=== PATIENT | male | born 1945 | race Caucasian/White ===

== ENCOUNTER 2016-10-17 13:40 | Observation (INO) | payer MEDICARE, OTHER ==
[~2016-10-17] VITALS: Ht 190.5 cm; Wt 137.7 kg
[2016-10-17] VITALS (11 sets, daily range): BP systolic 128–158; BP diastolic 71–87; PULSE 66–85; RESP 15–16; TEMP 98.1; O2SAT 95–98
[~2016-10-17 13:40] MED LIST: AUGM875 PO; BACT2OIN TOP; CARD120T4 PO; DIGO.125 PO; DOXY100T PO; KLOR20TA6 PO; LEVA750T9 PO; METO25 PO; RANI150 PO; VIBR50SY PO
[2016-10-17] MEDS ORDERED: SODIUM CHLOR 0.9% 1000 ML INJ 1,000 ML IV ONE ×2 (14:57→16:30)
[2016-10-17] MEDS ORDERED: SODIUM CHLORIDE 0.9% FLUSH 10 ML FLUSH IVF PRN (15:00)
[2016-10-17] MEDS ORDERED: MORPHINE SULFATE 4 MG/ML INJ IV PUSH ONE (15:00)
[2016-10-17] MEDS ORDERED: EYECAP PO (15:19)
[2016-10-17] MEDS ORDERED: EXCETAB66 PO (15:19)
[2016-10-17] MEDS ORDERED: VITA200013 PO (15:19)
[2016-10-17] MEDS ORDERED: ASPI1TAB69 PO (15:19)
[2016-10-17] MEDS ORDERED: METO25TA3 PO (15:19)
[2016-10-17] MEDS ORDERED: DILT-64 PO (15:19)
[2016-10-17 15:21] LABS: AUTOMATED NEUTROPHIL # 8.3 TH/MM3 (1.8-7.7); BASOPHIL # 0.1 TH/MM3 (0-0.2); BASOPHIL % 0.6 % (0.0-2.0); EOSINOPHIL # 0.2 TH/MM3 (0-0.4); EOSINOPHIL % 1.7 % (0.0-4.0); HEMATOCRIT 43.5 % (39.0-51.0); LYMPH % 16.6 % (9.0-44.0); LYMPHOCYTE # 1.9 TH/MM3 (1.0-4.8); MEAN CELL VOLUME 93.7 FL (80.0-100.0); MEAN CORPUSCULAR HEMOGLOBIN 31.2 PG (27.0-34.0); MEAN CORPUSCULAR HGB CONC 33.3 % (32.0-36.0); MONO % 8.6 % (0.0-8.0); NEUT % 72.5 % (16.0-70.0); PLATELET COUNT 193 TH/MM3 (150-450); RED BLOOD COUNT 4.65 MIL/MM3 (4.50-5.90); RED CELL DISTRIBUTION WIDTH 13.6 % (11.6-17.2); WHITE BLOOD COUNT 11.5 TH/MM3 (4.0-11.0)
[2016-10-17 15:31] LABS: CHLORIDE 101 MEQ/L (98-107); HEMO FLAGS DIFF FINAL; POTASSIUM 3.8 MEQ/L (3.5-5.1); SODIUM (NA) 138 MEQ/L (136-145)
[2016-10-17 15:34] LABS: ANION GAP 9 MEQ/L (5-15); BICARBONATE 27.7 MEQ/L (21.0-32.0)
[2016-10-17 15:35] LABS: BLOOD UREA NITROGEN 20 MG/DL (7-18); MAGNESIUM 1.8 MG/DL (1.5-2.5)
[2016-10-17 15:37] LABS: ALT (GPT) 24 U/L (12-78); AST (GOT) 19 U/L (15-37)
[2016-10-17 15:38] LABS: GLOMERULAR FILTRATION RATE 43 ML/MIN (>89)
[2016-10-17 15:39] LABS: TOTAL BILIRUBIN ADULT 0.5 MG/DL (0.2-1.0)
[2016-10-17 15:40] LABS: ALKALINE PHOSPHATASE 102 U/L (45-117); CREATINE KINASE 101 U/L (39-308)
[2016-10-17 15:53] LABS: CKMB 3.1 NG/ML (0.5-3.6)
--- NOTE | 2016-10-17 15:56 | RADHPO ---
EXAM DATE/TIME: 10/17/2016 15:10 [facility] COMPARISON: No previous studies available for comparison. INDICATIONS : Chest and back pain after fall this morning MEDICAL HISTORY : None. SURGICAL HISTORY : None. ENCOUNTER: Initial ACUITY: 1 day PAIN SCORE: 5/10 LOCATION: Bilateral chest FINDINGS: The cardiac silhouette is enlarged in transverse diameter. The lungs are free of acute parenchymal op acity. No effusions are identified. Osseous structures are intact. CONCLUSION: Cardiomegaly. No acute cardiopulmonary disease. Titi Sarmiento MD on October 17, 2016 at 15:33 Board Certified Radiologist. This report was verified electronically.
[2016-10-17 16:08] LABS: APTT (PATIENT) 26.1 SEC (24.3-30.1); PROTHROMBIN TIME - PATIENT 10.7 SEC (9.8-11.6)
[2016-10-17] MEDS ORDERED: IOHEXOL 350 MG/ML 10 ML VIAL (for RAD DIAG) IV ONE (16:40)
--- NOTE | 2016-10-17 16:45 | RADHPO ---
EXAM DATE/TIME: 10/17/2016 16:19 [facility] COMPARISON: No previous studies available for comparison. INDICATIONS : Syncopal episode with back pain. RADIATION DOSE: 71.96 CTDIvol (mGy) MEDICAL HISTORY : Hypertension. Cardiovascular disease SURGICAL HISTORY : None. ENCOUNTER: Initial ACUITY: 1 day PAIN SCALE: 5/10 LOCATION: cranial TECHNIQUE: Multiple contiguous axial images were obtained of the head. Using automated exposure control and adj ustment of the mA and/or kV according to patient size, radiation dose was kept as low as reasonably a chievable to obtain optimal diagnostic quality images. FINDINGS: CEREBRUM: The ventricles are normal for age. There appears to be a small, subcentimeter intraventricular lipom a in the left lateral ventricle. No evidence of midline shift, mass lesion, hemorrhage or acute infar ction. No extra-axial fluid collections are seen. POSTERIOR FOSSA: The cerebellum and brainstem are intact. The 4th ventricle is midline. The cerebellopontine angle i s unremarkable. EXTRACRANIAL: The visualized portion of the orbits is intact. SKULL: The calvaria is intact. No evidence of skull fracture. CONCLUSION: 1. Possible small, subcentimeter left-sided intraventricular lipoma. 2. Otherwise negative. Kentrell Chan MD on October 17, 2016 at 16:42 Board Certified Radiologist. This report was verified electronically.
--- NOTE | 2016-10-17 16:50 | PD ---
HPI Chief Complaint: Syncope/Near-Syncope Time Seen by Provider: 14:41 Travel History International Travel<30 days: No Contact w/Intl Traveler<30days: No Traveled to known affect area: No History of Present Illness HPI 71 y/o male presents with syncopal episode today after he went to the bathroom to urinate. He states that he felt lightheaded and blacked out but came to right before he hit the ground. He states he hit his head and started having pain to his left side of his back after the fall. He states intermittently he' s had tingling to his fingertips. Quality of pain is sharp. Severity is moderate. Pain is worse with movement. Follow was from standing position. He states this is his third syncopal event in the past month and this is the first one that he came to the ER to get evaluated for. He states Dr. baeza is his jewel inserter for atrial fibrillation. dr azul is his primary care physician. He states that he's never had issues with heart stents that he is aware of. He denies other concurrent complaints at this time. He does take a baby aspirin in terms of blood thinner medication. PFSH Past Medical History Arthritis: Yes Asthma: No Autoimmune Disease: No Blood Disorders: No Heart Rhythm Problems: Yes (AFIB) Cancer: No Cardiovascular Problems: Yes (ATRIAL FIBRILATION, thoracic AORTIC ANEURYSM) High Cholesterol: Yes Chest Pain: No Congestive Heart Failure: No COPD: No Cerebrovascular Accident: No Diabetes: No Diminished Hearing: No Endocrine: No Gastrointestinal Disorders: Yes GERD: No Glaucoma: No Genitourinary: No Headaches: Yes Hepatitis: No Hiatal Hernia: No Hypertension: Yes Immune Disorder: No Medical other: Yes (macular degeneration) Musculoskeletal: Yes (CHRONIC JOINT PAIN) Neurologic: Yes (neuropathy) Psychiatric: No Reproductive: No Respiratory: Yes Immunizations Current: Yes Migraines: Yes Myocardial Infarction: No Seizures: No Sickle Cell Disease: No Sleep Apnea: No Thyroid Disease: No Ulcer: Yes (BLEEDIND UL;CER IN PAST) Past Surgical History Abdominal Surgery: No AICD: No Appendectomy: No Arteriovenous Shunt: No Cardiac Surgery: Yes (CARDIAC CATH IN PAST ATTEMPTED ABLATION) Cholecystectomy: No Ear Surgery: No Endocrine Surgery: No Eye Surgery: No Genitourinary Surgery: No Gynecologic Surgery: No Insulin Pump: No Joint Replacement: No Oral Surgery: No Thoracic Surgery: No Other Surgery: Yes (CA? REMOVED FROM BELOW RIGHT EYE) Social History Alcohol Use: Yes (3 mix drinks and 3 beers 5 x weekly, states does not drink 2 days/week) Tobacco Use: Yes (1-2 PPD) Substance Use: No Allergies-Medications (Allergen,Severity, Reaction): Coded Allergies: No Known Allergies (Verified , 10/17/16) Reported Meds & Prescriptions Reported Meds & Active Scripts Active Reported Excedrin Back & Body (Acetaminophen-Aspirin Buffered) 250-250 mg Tab 2 Tab PO Q3HR NEB PRN Vitamin D (Cholecalciferol) 2,000 Unit Cap 2,000 Units PO DAILY Eye Vitamins (Multiple Vitamins W/ Minerals) 1 Cap 1 Cap PO DAILY Diltiazem CD 24 HR 240 Mg Caper 240 Mg PO DAILY Metoprolol Tartrate 25 Mg Tab 25 Mg PO BID Aspirin 81 Mg Tabdr 81 Mg PO DAILY Review of Systems Except as stated in HPI: all other systems reviewed are Neg Physical Exam Narrative General: 71 y/o patient in no apparent distress Skin: warm and dry Eyes: pupils equal NECK:c-collar placed Cardiovascular: Regular rate and rhythm Respiratory: normal respiratory effort noted, clear to auscultation bilaterally Abdomen: soft, nontender, nondistended Back: No step-offs, midline spine nontender with palpation Extremities: no pain over main joints, no lacerations over, neurovascularly intact Neuro: awake, alert, sensation and motor grossly intact Data Data Last Documented VS Vital Signs Date Time Temp Pulse Resp B/P Pulse Ox O2 Delivery O2 Flow Rate FiO2 10/17/16 17:51 66 16 140/80 97 Room Air 10/17/16 13:58 98.1 Orders Electrocardiogram (10/17/16 14:57) Complete Blood Count With Diff (10/17/16 14:57) Comprehensive Metabolic Panel (10/17/16 14:57) Magnesium (Mg) (10/17/16 14:57) B-Type Natriuretic Peptide (10/17/16 14:57) Ckmb (Isoenzyme) Profile (10/17/16 14:57) Troponin I (10/17/16 14:57) Act Partial Throm Time (Ptt) (10/17/16 14:57) Prothrombin Time / Inr (Pt) (10/17/16 14:57) Urinalysis - C+S If Indicated (10/17/16 14:57) Chest, Single Ap (10/17/16 14:57) Ct Brain W/O Iv Contrast(Rout) (10/17/16 14:57) Ecg Monitoring (10/17/16 14:57) Iv Access Insert/Monitor (10/17/16 14:57) Oximetry (10/17/16 14:57) Sodium Chloride 0.9% Flush (Ns Flush) (10/17/16 15:00) Sodium Chlor 0.9% 1000 Ml Inj (Ns 1000 M (10/17/16 14:57) Ct Cerv Spine W/O Contrast (10/17/16 ) Apply Cervical Collar (10/17/16 14:57) Morphine Inj (Morphine Inj) (10/17/16 15:00) CKMB (10/17/16 15:10) CKMB% (10/17/16 15:10) Cta Thor Abd Aorta W Iv C W3d (10/17/16 15:34) Sodium Chlor 0.9% 1000 Ml Inj (Ns 1000 M (10/17/16 16:30) Iohexol 350 Inj (Omnipaque 350 Inj) (10/17/16 16:40) Admit Order (Ed Use Only) (10/17/16 17:51) Labs Laboratory Tests Test 10/17/16 10/17/16 15:10 17:05 White Blood Count 11.5 TH/MM3 Red Blood Count 4.65 MIL/MM3 Hemoglobin 14.5 GM/DL Hematocrit 43.5 % Mean Corpuscular Volume 93.7 FL Mean Corpuscular Hemoglobin 31.2 PG Mean Corpuscular Hemoglobin 33.3 % Concent Red Cell Distribution Width 13.6 % Platelet Count 193 TH/MM3 Mean Platelet Volume 8.8 FL Neutrophils (%) (Auto) 72.5 % Lymphocytes (%) (Auto) 16.6 % Monocytes (%) (Auto) 8.6 % Eosinophils (%) (Auto) 1.7 % Basophils (%) (Auto) 0.6 % Neutrophils # (Auto) 8.3 TH/MM3 Lymphocytes # (Auto) 1.9 TH/MM3 Monocytes # (Auto) 1.0 TH/MM3 Eosinophils # (Auto) 0.2 TH/MM3 Basophils # (Auto) 0.1 TH/MM3 CBC Comment DIFF FINAL Differential Comment Prothrombin Time 10.7 SEC Prothromb Time International 1.0 RATIO Ratio Activated Partial 26.1 SEC Thromboplast Time Sodium Level 138 MEQ/L Potassium Level 3.8 MEQ/L Chloride Level 101 MEQ/L Carbon Dioxide Level 27.7 MEQ/L Anion Gap 9 MEQ/L Blood Urea Nitrogen 20 MG/DL Creatinine 1.60 MG/DL Estimat Glomerular Filtration 43 ML/MIN Rate Random Glucose 115 MG/DL Calcium Level 9.0 MG/DL Magnesium Level 1.8 MG/DL Total Bilirubin 0.5 MG/DL Aspartate Amino Transf 19 U/L (AST/SGOT) Alanine Aminotransferase 24 U/L (ALT/SGPT) Alkaline Phosphatase 102 U/L Total Creatine Kinase 101 U/L Creatine Kinase MB 3.1 NG/ML Troponin I LESS THAN 0.02 NG/ML B-Type Natriuretic Peptide 39 PG/ML Total Protein 7.0 GM/DL Albumin 3.5 GM/DL Urine Color YELLOW Urine Turbidity CLEAR Urine pH 5.5 Urine Specific [place] 1.015 Urine Protein NEG mg/dL Urine Glucose (UA) NEG mg/dL Urine Ketones NEG mg/dL Urine Occult Blood NEG Urine Nitrite NEG Urine Bilirubin NEG Urine Leukocyte Esterase NEG Urine WBC 0-2 /hpf Urine Squamous Epithelial 0-5 /hpf Cells Urine Hyaline Casts 3-5 /lpf Urine Mucus FEW /lpf Microscopic Urinalysis Comment CULT NOT INDICATED MDM Medical Decision Making Medical Screen Exam Complete: Yes Emergency Medical Condition: Yes Medical Record Reviewed: Yes (past history confirmed) Interpretation(s) EKG shows atrial fibrillation, no ST elevation or depression, and no arrhythmias. No significant T-wave inversions. CBC & BMP Diagram 10/17/16 15:10 Last [address] 10/17/16 [id number] Signed Impressions: Service Date/Time: Monday, October 17, 2016 16:19 - CONCLUSION: 1. Possible small, subcentimeter left-sided intraventricular lipoma. 2. Otherwise negative. Kentrell Chan MD Chest X-Ray 10/17/16 [id number] Signed Impressions: Service Date/Time: Monday, October 17, 2016 15:10 - CONCLUSION: Cardiomegaly. No acute cardiopulmonary disease. Titi Sarmiento MD CT chest discussed with radiologist and given history and states no dissection, aneurysm or PE CT cervical spine with multiple changes noted and patient notes that he has had multiple issues with his neck before-advised MRI as outpatient given no acute neurologic findings now, if numbness returns he may need MRI here Differential Diagnosis Anemia, vasovagal, cardiac, enlargement of aneurysm with leak, aortic dissection , fracture.... Narrative Course Will check blood work, CT scan and dose with IV fluids and monitor patient without any midline pain, no numbness now, c collar removed, patient updated and agrees to observation for further monitoring Physician Communication Physician Communication dr hayden agrees to observation Diagnosis Primary Impression: Syncope Qualified Code: R55 - Syncope, unspecified syncope type Admitting Information Admitting Physician Requests: Observation Danya Pelletier MD Oct 17, 2016 16:50
[2016-10-17 17:15] LABS: BLOOD, URINE NEG (NEG); GLUCOSE,URINE NEG (NEG); KETONE, URINE NEG (NEG); NITRITE,URINE NEG (NEG); PH, URINE 5.5 (5.0-8.5)
[2016-10-17 17:20] LABS: URINE COLOR YELLOW (YELLW/STRAW)
[2016-10-17 17:23] LABS: COMMENT (UR) CULT NOT INDICATED; CULTURE IF INDICATED CULT NOT INDICATED; MUCUS URINE FEW /lpf (OCC); SQUAMOUS EPITHELIAL CELL URINE 0-5 /hpf (0-5); WBC, URINE 0-2 /hpf (0-5)
--- NOTE | 2016-10-17 17:25 | RADHPO ---
EXAM DATE/TIME: 10/17/2016 16:28 [facility] COMPARISON: No previous studies available for comparison. INDICATIONS : Syncopal episode with back pain. IV CONTRAST: 100 cc Omnipaque 350 (iohexol) IV RADIATION DOSE: 18.85 CTDIvol (mGy) MEDICAL HISTORY : Hypertension. Aneurysm, abdominal. SURGICAL HISTORY : None. ENCOUNTER: Initial ACUITY: 1 day PAIN SCALE: 10/10 LOCATION: Chest and back. TECHNIQUE: Volumetric scanning was performed using a multi-row detector CT scanner. The data was post processed with a variety of visualization algorithms including full volume maximum intensity pr ojection, multi-planar sliding thin slab reformation, curved planar reformation, and surface renderin g techniques. Using automated exposure control and adjustment of the mA and/or kV according to patie nt size, radiation dose was kept as low as reasonably achievable to obtain optimal diagnostic quality images. FINDINGS: Moderate atherosclerotic vascular disease is present with coronary artery calcification. There is mi ld dilatation of the ascending aorta when compared to the descending aorta. There is no evidence for a thoracic dissection. There is compensated cardiomegaly without pericardial effusion. The abdominal aorta is unremarkable. Scattered vascular calcifications are noted. Both iliacs are widely patent. There are no suspicious lung lesions identified. There is no axillary or mediastinal adenopathy. Liver is free of focal defects. Spleen and pancreas are unremarkable. The right adrenal gland is normal. There is a small 2.3 cm left adrenal nodule. There is a nonobstructing 8 mm stone in the right kidney associated with a small right renal cyst. There is no evidence for pancreatitis. Review of bone windows reveals degenerative changes in the thoracic spine. There are degenerative ch anges in the lumbar spine as well. There is no vertebral compression. There is no retroperitoneal h ematoma. CONCLUSION: 1. There is no evidence for aortic dissection. 2. 2.3 cm left adrenal nodule. 3. Nonobstructing right renal stone. 4. There is no pericardial effusion. 5. There is mild compensated cardiomegaly. 6. There are no significant coronary artery calcifications. 7. There is no evidence for central pulmonary emboli on limited views of the pulmonary arteries. Rubén Mariee MD FACR on October 17, 2016 at 17:12 Board Certified Radiologist. This report was verified electronically.
--- NOTE | 2016-10-17 17:36 | RADHPO ---
EXAM DATE/TIME: 10/17/2016 16:19 [facility] COMPARISON: No previous studies available for comparison. INDICATIONS : Syncopal episode, fall. RADIATION DOSE: 32.11 CTDIvol (mGy) MEDICAL HISTORY : Cardiovascular disease. Hypertension. SURGICAL HISTORY : None. ENCOUNTER: Initial ACUITY: 1 day PAIN SCALE: 5/10 LOCATION: Neck TECHNIQUE: Volumetric scanning of the cervical spine was performed. Multiplanar reconstructions i n the sagittal, coronal and oblique axial planes were performed. Using automated exposure control a nd adjustment of the mA and/or kV according to patient size, radiation dose was kept as low as reason ably achievable to obtain optimal diagnostic quality images. FINDINGS: Sagittal and coronal reconstructions show multilevel degenerative disc disease with bridging anterior osteophytes from C4-C5 inferiorly characteristic of DISH. Minimal grade I anterolisthesis of C3 on C4 and C4 on C5 is almost certainly due to marked facet degeneration. Vertebral body heights are zabrina ntained without evidence of fracture. There is some reversal of the normal lordotic curvature. Unco vertebral ridging is most prominent posteriorly at C5-C6 and left posterolaterally at C2-C3 and C3-C4 . This encroaches on the anterior epidural space but none of these results in significant spinal reji nosis. Detailed axial images as follows: C2-C3: Bilateral facet hypertrophy left greater than right. There is some encroachment on both neur al foramina and again, left posterior spur encroaches on the anterior epidural space but I believe th e spinal canal and neural foramina remain adequate. C3-C4: Bilateral facet hypertrophy. There is narrowing of both neural foramina, right greater than left. This could compromise the right C4 nerve root. Left posterior spur again encroaches on the an terior epidural space but the spinal canal and left neural foramen I believe are adequate. C4-C5: Bilateral facet hypertrophy, right greater than left. Prominent anterior spurs with bridging osteophytes. Some encroachment on the neural foramina but the spinal canal and neural foramina I be lieve are adequate. C5-C6: Uncovertebral ridging. Spinal canal and neural foramina are adequate. C6-C7: Uncovertebral ridging predominantly directed anteriorly. Spinal canal and neural foramina ar e patent. C7-T1: Prominent anterior spur. Spinal canal and neural foramina are patent. CONCLUSION: 1. Reversal of the normal lordotic curvature with flowing anterior osteophytes from C4-C5 inferiorly characteristic of DISH. 2. Grade I anterolisthesis of C3 on C4 and C4 on C5 which is almost certainly due to marked facet hy pertrophy at both of these levels. I do not see an acute fracture. 3. There is encroachment on the neural foramina at multiple levels. This is most severe rightward a t C3-C4 where there may be some compromise of the exiting right C4 nerve root. I believe the spinal canal and neural foramina are adequate at all remaining levels. Kentrell Chan MD on October 17, 2016 at 17:17 Board Certified Radiologist. This report was verified electronically.
[2016-10-17] MEDS: SODIUM CHLOR 0.9% 1000 ML INJ 1,000 ML IV SCH (18:24)
[2016-10-17] MEDS ORDERED: ACETAMINOPHEN 325 MG TAB PO PRN (19:30)
[2016-10-18] VITALS (12 sets, daily range): BP systolic 118–157; BP diastolic 75–88; PULSE 76–130; RESP 14–20; TEMP 97.7–98.6; O2SAT 93–98
[2016-10-18] MEDS ORDERED: NALOXONE HCL 0.4 MG/ML AMP IV PRN (03:00)
[2016-10-18] MEDS ORDERED: MORPHINE SULFATE 4 MG/ML INJ IV PUSH ONE (03:00)
[2016-10-18] MEDS: ACETAMINOPHEN/HYDROcodone 325 MG/7.5 MG TAB PO PRN ×4 (06:35→23:42)
[2016-10-18 06:59] LABS: AUTOMATED NEUTROPHIL # 6.5 TH/MM3 (1.8-7.7); BASOPHIL % 0.3 % (0.0-2.0); EOSINOPHIL # 0.3 TH/MM3 (0-0.4); EOSINOPHIL % 3.3 % (0.0-4.0); HEMATOCRIT 39.8 % (39.0-51.0); HEMO FLAGS DIFF FINAL; LYMPH % 22.2 % (9.0-44.0); LYMPHOCYTE # 2.3 TH/MM3 (1.0-4.8); MEAN CELL VOLUME 94.2 FL (80.0-100.0); MEAN CORPUSCULAR HEMOGLOBIN 31.8 PG (27.0-34.0); MEAN CORPUSCULAR HGB CONC 33.7 % (32.0-36.0); MONO % 9.4 % (0.0-8.0); NEUT % 64.8 % (16.0-70.0); PLATELET COUNT 170 TH/MM3 (150-450); RED BLOOD COUNT 4.23 MIL/MM3 (4.50-5.90); RED CELL DISTRIBUTION WIDTH 14.1 % (11.6-17.2); WHITE BLOOD COUNT 10.1 TH/MM3 (4.0-11.0)
[2016-10-18 07:06] LABS: POTASSIUM 3.5 MEQ/L (3.5-5.1)
[2016-10-18 07:11] LABS: BICARBONATE 29.2 MEQ/L (21.0-32.0)
--- NOTE | 2016-10-18 13:38 | EKG ---
Date Performed: 10/17/2016 Time Performed: 14:42:16 PTAGE: 71 years EKG: Atrial fibrillation Rightward axis Abnormal ECG PREVIOUS TRACING : 03/09/2010 15.43 Compared to prior tracing no significant change DOCTOR: Titi Chao Interpretating Date/Time 10/18/2016 13:35:53
--- NOTE | 2016-10-18 14:09 | HHI.HP ---
[facility] Service [place] [facility] Primary Care Physician Jeannette Hartley MD Admission Diagnosis syncope Diagnoses: (1) Syncope Diagnosis: Principal Chief Complaint: Near syncopal episode Travel History International Travel<30 Days: No Contact w/Intl Traveler <30 Da: No Traveled to Known Affected Are: No History of Present Illness Mr. Love is a 71-year-old male with a known history of atrial fibrillation with previous ablation, macular degeneration, arthritis and chronic joint pain who presents to the ED after falling and hitting his head at home. Patient supposedly had gotten up out of bed around 0530 to use the restroom. He had just finished urinating while standing, went to go wash his hands, immediately felt dizzy and fell to the ground, hitting his head on the vanity. Per patient report he has had five similar episodes in the past few weeks which were all precipitated by his "coughing spells". After these coughing episodes he feels like he "looses all his strength and control in his lower extremities" and falls to the floor, without any loss of consciousness. This "loss of control" and "loss of feeling" is for a few short minutes and then slowly returns. Patient is being seen by Dr. Marin for atrial fibrillation and does continue to take Metoprolol and Diltazem. Denies any vision loss or vertigo. Denies any associated nausea, vomiting or loss of bladder or bowel control. Denies any chest pain, fever or shortness of breath. Review of Systems Constitutional: COMPLAINS OF: Dizziness, DENIES: Diaphoretic episodes, Fatigue , Fever, Weight gain, Weight loss, Chills, Change in appetite, Night Sweats Endocrine: DENIES: Heat/cold intolerance, Polydipsia, Polyuria, Polyphagia Eyes: DENIES: Blurred vision, Diplopia, Eye inflammation, Eye pain, Vision loss , Photosensitivity, Double Vision Ears, nose, mouth, throat: DENIES: Tinnitus, Hearing loss, Vertigo, Nasal discharge, Oral lesions, Throat pain, Hoarseness, Ear Pain, Running Nose, Epistaxis, Sinus Pain, Toothache, Odynophagia Respiratory: COMPLAINS OF: Cough (nonrpoductive), DENIES: Apneas, Snoring, Wheezing, Hemoptysis, Sputum production, Shortness of breath Cardiovascular: COMPLAINS OF: Syncope, DENIES: Chest pain, Palpitations, Dyspnea on Exertion, PND, Lower Extremity Edema, Orthopnea, Claudication Gastrointestinal: DENIES: Abdominal pain, Black stools, Bloody stools, Constipation, Diarrhea, Nausea, Vomiting, Difficulty Swallowing, Anorexia Genitourinary: DENIES: Sexual dysfunction, Urinary frequency, Urinary incontinence, Urgency, Hematuria, Dysuria, Nocturia, Penile Discharge, Testicular Pain, Testicular Swelling Musculoskeletal: COMPLAINS OF: Neck pain, DENIES: Joint pain, Muscle aches, Stiffness, Joint Swelling, Back pain Integumentary: DENIES: Abnormal pigmentation, Nail changes, Pruritus, Rash Hematologic/lymphatic: DENIES: Bruising, Lymphadenopathy Immunologic/allergic: DENIES: Eczema, Urticaria Neurologic: COMPLAINS OF: Poor Balance, DENIES: Abnormal gait, Headache, Localized weakness, Paresthesias, Seizures, Speech Problems, Tremor Psychiatric: DENIES: Anxiety, Confusion, Mood changes, Depression, Hallucinations, Agitation, Suicidal Ideation, Homicidal Ideation, Delusions Past Family Social History Past Medical History Atrial fibrillation Arthritis Thoracic aortic aneurism Hypercholesteremia Macular Degeneration Chronic joint pain Past Surgical History Cardiac ablation Reported Medications Reported Meds & Active Scripts Active Reported Excedrin Back & Body (Acetaminophen-Aspirin Buffered) 250-250 mg Tab 2 Tab PO Q3HR NEB PRN Vitamin D (Cholecalciferol) 2,000 Unit Cap 2,000 Units PO DAILY Eye Vitamins (Multiple Vitamins W/ Minerals) 1 Cap 1 Cap PO DAILY Diltiazem CD 24 HR 240 Mg Caper 240 Mg PO DAILY Metoprolol Tartrate 25 Mg Tab 25 Mg PO BID Aspirin 81 Mg Tabdr 81 Mg PO DAILY Allergies: Coded Allergies: No Known Allergies (Verified , 10/17/16) Family History Mothers health history is significant for liver cancer. Fathers medical history includes uncontrolled diabetes and PVD. Social History Patient lives at home with his . Patient does admit to a current smoking habit with a 55 pack year history. Does also admit to drinking 3 mixed drinks and 3 beers on 5 days of the week. Denies any current illicit drug abuse. Physical Exam Vital Signs Vital Signs Date Time Temp Pulse Resp B/P Pulse Ox O2 Delivery O2 Flow Rate FiO2 10/18/16 08:00 97.7 80 18 142/86 98 10/18/16 04:00 97.9 77 20 140/75 95 10/18/16 01:50 80 10/18/16 01:45 98.0 81 20 151/76 96 10/18/16 00:50 76 16 151/88 97 Room Air 10/17/16 23:50 78 16 137/78 98 Room Air 10/17/16 23:00 68 16 96 Room Air 10/17/16 22:50 78 16 137/73 96 Room Air 10/17/16 21:50 74 16 154/87 96 Room Air 10/17/16 20:50 66 16 136/84 95 Room Air 10/17/16 19:50 72 16 133/79 97 Room Air 10/17/16 19:00 74 16 96 Room Air 10/17/16 18:50 72 16 145/71 96 Room Air 10/17/16 18:45 16 97 Room Air 10/17/16 17:51 66 16 140/80 97 Room Air 10/17/16 16:53 78 16 143/84 96 Room Air 10/17/16 15:47 16 10/17/16 15:10 16 95 Room Air 10/17/16 15:10 67 16 95 Room Air 10/17/16 14:50 85 16 158/77 97 Room Air 10/17/16 13:58 98.1 72 15 128/71 97 Physical Exam GENERAL: This is a well-nourished, well-developed patient, in no apparent distress. Lying comfortably in bed. SKIN: No rashes, ecchymoses or lesions. Cool and dry. Bilateral lower extremities brown in color. HEAD: Atraumatic. Normocephalic. No temporal or scalp tenderness. EYES: Pupils equal round and reactive. Extraocular motions intact. No scleral icterus. No injection or drainage. No nystagmus noted. ENT: Nose without bleeding, purulent drainage or septal hematoma. Throat without erythema, tonsillar hypertrophy or exudate. Uvula midline. Airway patent. NECK: Trachea midline. No JVD or lymphadenopathy. Supple, nontender, no meningeal signs. CARDIOVASCULAR: Regular rate and rhythm without murmurs, gallops, or rubs. Bilateral DP and pedal pulses present 2+. RESPIRATORY: Clear to auscultation. Breath sounds equal bilaterally. No wheezes , rales, or rhonchi. GASTROINTESTINAL: Abdomen soft, non-tender, rounded. + BS x 4Q. No hepato- splenomegaly, or palpable masses. No guarding. MUSCULOSKELETAL: Extremities without clubbing, cyanosis, or edema. No joint tenderness, effusion, or edema noted. No calf tenderness. Negative Homans sign bilaterally. NEUROLOGICAL: Awake and alert. Cranial nerves II through XII intact. Motor and sensory grossly within normal limits. Five out of 5 muscle strength in all muscle groups. Normal speech. Laboratory Laboratory Tests Test 10/17/16 10/17/16 10/18/16 15:10 17:05 05:37 White Blood Count 11.5 10.1 Red Blood Count 4.65 4.23 Hemoglobin 14.5 13.4 Hematocrit 43.5 39.8 Mean Corpuscular Volume 93.7 94.2 Mean Corpuscular Hemoglobin 31.2 31.8 Mean Corpuscular Hemoglobin 33.3 33.7 Concent Red Cell Distribution Width 13.6 14.1 Platelet Count 193 170 Mean Platelet Volume 8.8 8.8 Neutrophils (%) (Auto) 72.5 64.8 Lymphocytes (%) (Auto) 16.6 22.2 Monocytes (%) (Auto) 8.6 9.4 Eosinophils (%) (Auto) 1.7 3.3 Basophils (%) (Auto) 0.6 0.3 Neutrophils # (Auto) 8.3 6.5 Lymphocytes # (Auto) 1.9 2.3 Monocytes # (Auto) 1.0 1.0 Eosinophils # (Auto) 0.2 0.3 Basophils # (Auto) 0.1 0.0 CBC Comment DIFF FINAL DIFF FINAL Differential Comment Prothrombin Time 10.7 Prothromb Time International 1.0 Ratio Activated Partial 26.1 Thromboplast Time Sodium Level 138 141 Potassium Level 3.8 3.5 Chloride Level 101 104 Carbon Dioxide Level 27.7 29.2 Anion Gap 9 8 Blood Urea Nitrogen 20 19 Creatinine 1.60 1.20 Estimat Glomerular Filtration 43 59 Rate Random Glucose 115 109 Calcium Level 9.0 8.5 Magnesium Level 1.8 Total Bilirubin 0.5 Aspartate Amino Transf 19 (AST/SGOT) Alanine Aminotransferase 24 (ALT/SGPT) Alkaline Phosphatase 102 Total Creatine Kinase 101 Creatine Kinase MB 3.1 Troponin I LESS THAN 0.02 B-Type Natriuretic Peptide 39 Total Protein 7.0 Albumin 3.5 Urine Color YELLOW Urine Turbidity CLEAR Urine pH 5.5 Urine Specific [place] 1.015 Urine Protein NEG Urine Glucose (UA) NEG Urine Ketones NEG Urine Occult Blood NEG Urine Nitrite NEG Urine Bilirubin NEG Urine Leukocyte Esterase NEG Urine WBC 0-2 Urine Squamous Epithelial 0-5 Cells Urine Hyaline Casts 3-5 Urine Mucus FEW Microscopic Urinalysis Comment CULT NOT INDICATED Result Diagram: 10/18/16 0537 10/18/16 0537 Imaging Last Impressions Aorta CTA 10/17/16 1534 Signed Impressions: Service Date/Time: Monday, October 17, 2016 16:28 - CONCLUSION: 1. There is no evidence for aortic dissection. 2. 2.3 cm left adrenal nodule. 3. Nonobstructing right renal stone. 4. There is no pericardial effusion. 5. There is mild compensated cardiomegaly. 6. There are no significant coronary artery calcifications. 7. There is no evidence for central pulmonary emboli on limited views of the pulmonary arteries. Rubén Mariee MD FACR Head CT 10/17/16 1457 Signed Impressions: Service Date/Time: Monday, October 17, 2016 16:19 - CONCLUSION: 1. Possible small, subcentimeter left-sided intraventricular lipoma. 2. Otherwise negative. Kentrell Chan MD Chest X-Ray 10/17/16 145 Signed Impressions: Service Date/Time: Monday, October 17, 2016 15:10 - CONCLUSION: Cardiomegaly. No acute cardiopulmonary disease. Titi Sarmiento MD Cervical Spine CT 10/17/16 0000 Signed Impressions: Service Date/Time: Monday, October 17, 2016 16:19 - CONCLUSION: 1. Reversal of the normal lordotic curvature with flowing anterior osteophytes from C4-C5 inferiorly characteristic of DISH. 2. Grade I anterolisthesis of C3 on C4 and C4 on C5 which is almost certainly due to marked facet hypertrophy at both of these levels. I do not see an acute fracture. 3. There is encroachment on the neural foramina at multiple levels. This is most severe rightward at C3-C4 where there may be some compromise of the exiting right C4 nerve root. I believe the spinal canal and neural foramina are adequate at all remaining levels. Kentrell Chan MD Assessment and Plan Assessment and Plan Syncopal/near syncopal episode, Possible vasovagal, neurogenic, orthostatic - Obtain orthostatic blood pressures - ECHO ordered - Adequately hydrate: NS 50 ml/hr. Heart healthy diet. - Head CT resulted: possible small, subcentimeter left-sided intraventricular lipoma. - Obtain EEG -Patient advised "no driving" as he continues to drive Thoracic aortic aneurysm - Aortic CTA resulted: No evidence of aortic dissection. 2.3 cm left adrenal nodule. Mild compensated cardiomegaly. - Monitor. Atrial fibrillation, controlled - Hold beta blockers and Cardizem for now. -Patient adamantly refuses anticoagulation due to history of bleeding ulcers Chronic back and neck pain - Cervical spine CT: No acute fx. Grade I anterolisthesis of C3 on C4 and C4 on C5. - Acetaminophen and [place] PRN DVT Prophylaxis: - Sequential compression devices Written by Brandon Gonzalez PA-C, acting as scribe for Dr. Aguilar on 10/18/16 at 1600. The documentation accurately reflects the work and decisions performed face-to- face by Dr. Aguilar on 10/18/16 at 1600. Physician Certification 2 Midnight Certification Type: Admission for Inpatient Services Order for Inpatient Services The services are ordered in accordance with Medicare regulations or non- Medicare payer requirements, as applicable. In the case of services not specified as inpatient-only, they are appropriately provided as inpatient services in accordance with the 2-midnight benchmark. Estimated LOS (days): 2 days is the estimated time the patient will need to remain in the hospital, assuming treatment plan goals are met and no additional complications. Post-Hospital Plan: Home Problem Qualifiers (1) Syncope: Qualified Code: R55 - Vasovagal syncope Brandon Gonzalez Oct 18, 2016 14:09 Annel Aguilar MD Oct 18, 2016 19:13
--- NOTE | 2016-10-18 17:17 | EC ---
Study Study Date:10/18/2016 STUDY CONCLUSIONS SUMMARY - Left ventricle: The cavity size was mildly dilated. Wall thickness was increased in a pattern of mild LVH. Systolic function was normal. The estimated ejection fraction was in the range of 50% to 55%. Wall motion was normal; there were no regional wall motion abnormalities. - Aortic valve: Valve area: 1.51cm^2(VTI). Valve area: 2cm^2 (Vmax). If LV function is below 40, please consider prescribing an ACEI or ARB or document rationale for non-use. PROCEDURE DATA STUDY STATUS: Elective. Procedure: Transthoracic echocardiography. Image quality was good. Scanning was performed from the parasternal, apical, and subcostal acoustic windows. Study completion: The patient tolerated the procedure well. Transthoracic echocardiography. M-mode, complete 2D, complete spectral Doppler, and color Doppler. Height: Height: 75in. Weight: Weight: 294.4lb. Body mass index: BMI: 36.9kg/m^2. Body surface area: BSA: 2.59m^2. Patient status: Inpatient. CARDIAC ANATOMY LEFT VENTRICLE: The cavity size was mildly dilated. Wall thickness was increased in a pattern of mild LVH. Systolic function was normal. The estimated ejection fraction was in the range of 50% to 55%. Wall motion was normal; there were no regional wall motion abnormalities. AORTIC VALVE: Trileaflet; normal thickness leaflets. Doppler: Transvalvular velocity was within the normal range. There was no stenosis. No regurgitation. Valve area: 1.51cm^2(VTI). Indexed valve area: 0.58cm^2/m^2 (VTI). Valve area: 2cm^2 (Vmax). Indexed valve area: 0.77cm^2/m^2 (Vmax). Mean gradient: 3mm Hg (S). AORTA: Aortic root: The aortic root was normal in size. MITRAL VALVE: Structurally normal valve. Doppler: Transvalvular velocity was within the normal range. There was no evidence for stenosis. No regurgitation. Peak gradient: 3mm Hg (D). LEFT ATRIUM: The atrium was normal in size. RIGHT VENTRICLE: The cavity size was normal. Wall thickness was normal. PULMONIC VALVE: Doppler: Transvalvular velocity was within the normal range. There was no evidence for stenosis. No regurgitation. TRICUSPID VALVE: Structurally normal valve. Doppler: Transvalvular velocity was within the normal range. No regurgitation. PULMONARY ARTERY: The main pulmonary artery was normal-sized. Systolic pressure was within the normal range. RIGHT ATRIUM: The atrium was normal in size. PERICARDIUM: There was no pericardial effusion. SYSTEMIC VEINS: Inferior vena cava: The vessel was normal in size. Patient weight: 294.4lb _Ejection fraction:_ 65-75% _Fractional shortening:_ 32% up to 5Kg 5-11.5Kg 11.6-22.9Kg 23-45Kg 45-57Kg Aortic Root 7-13 <17 13-22 17-27 17-27 LA diam 6-13 <23 24-38 33-47 37-40 RVID 10-17 7-15 7-15 7-18 8-17 LVIDd 12-22 <32 24-38 33-47 37-40 LVPW 2-4 3-6 5-7 6-8 7-8 IVS 2-4 3-6 5-7 6-8 7-8 BASIC MEASUREMENTS ADULT NORMAL Left ventricle LV internal dimension, ED, chordal 45.1 mm 43-52 level, PLAX LV internal dimension, ES, chordal 34.3 mm 23-38 level, PLAX Fractional shortening, chordal level, *24 % >29 PLAX LV posterior wall thickness, ED 11.4 mm IVS/LVPW ratio, ED 1.01 <1.3 Ventricular septum Septal thickness, ED 11.5 mm Aortic valve Leaflet separation 19 mm 15-26 Aorta Root diameter, ED 42 mm Left atrium Anterior-posterior dimension 32 mm Anterior-posterior dimension index 1.24 cm/m^2 <2.2 BASIC MEASUREMENTS ADULT NORMAL Aortic valve Leaflet separation 19 mm 15-26 DOPPLER MEASUREMENTS ADULT NORMAL Aortic valve Peak velocity, S 120 cm/s Mean velocity, S 80.1 cm/s VTI, S 19.8 cm Mean gradient, S 3 mm Hg Valve area, VTI 1.51 cm^2 Valve area index, VTI 0.58 cm^2/m^2 Valve area, Vmax 2 cm^2 Valve area index, Vmax 0.77 cm^2/m^2 Mitral valve Peak E-wave velocity 87.5 cm/s Deceleration time 152 ms 150-230 Peak gradient, D 3 mm Hg Pulmonic valve Peak velocity, S 60.2 cm/s LEGEND: Mean values are shown as u=mean value. Asterisk (*) rueda values outside specified normal range. Prepared and signed by Rosales Frankel [id number]
[2016-10-18] MEDS: SODIUM CHLOR 0.9% 1000 ML INJ 1,000 ML IV SCH (18:15)
[2016-10-19 04:00] VITALS: BP 133/78; PULSE 90; RESP 20; TEMP 98.2; O2SAT 93
[2016-10-19] MEDS: ACETAMINOPHEN/HYDROcodone 325 MG/7.5 MG TAB PO PRN ×3 (05:48→21:52)
[2016-10-19 08:00] VITALS: BP_SYST 111; BP_SYST 147; BP_SYST 166; BP_DIAS 75; BP_DIAS 82; BP_DIAS 83; PULSE 87; PULSE 89; RESP 14; TEMP 98.1; O2SAT 92
[2016-10-19] MEDS: SODIUM CHLOR 0.9% 1000 ML INJ 1,000 ML IV SCH (10:16)
--- NOTE | 2016-10-19 11:18 | HHI.PR ---
Subjective Remarks Patient seen and examined by myself and Dr. Aguilar. Patient lying comfortably in bed, no apparent distress. Denies any further dizziness. Has tolerated diet, no nausea or vomiting. Afebrile. Patient is anxious to leave the hospital today. Objective Vitals Vital Signs Date Time Temp Pulse Resp B/P Pulse Ox O2 Delivery O2 Flow Rate FiO2 10/19/16 08:00 98.1 89 14 147/83 92 166/82 111/75 10/19/16 04:00 Room Air 10/19/16 04:00 98.2 90 20 133/78 93 10/19/16 00:00 Room Air 10/18/16 23:50 98.6 104 14 157/82 93 10/18/16 22:32 130 118/83 10/18/16 22:30 100 146/78 10/18/16 20:00 98.2 85 16 142/77 93 10/18/16 20:00 Room Air 10/18/16 19:26 93 10/18/16 16:00 97.8 81 18 142/82 95 10/18/16 12:00 98.0 82 18 138/84 95 I/O 10/18/16 10/18/16 10/18/16 10/19/16 10/19/16 10/19/16 07:00 15:00 23:00 07:00 15:00 23:00 Intake Total 2622 ml 735 ml 416 ml Output Total 1350 ml 600 ml 300 ml Balance 1272 ml -600 ml 435 ml 416 ml Intake Oral 0 ml 600 ml IV Total 2622 ml 135 ml 416 ml Output Urine Total 1350 ml 600 ml 300 ml # Voids 1 3 # Bowel Movements 0 Result Diagram: 10/18/16 0537 10/18/16 0537 Imaging Last Impressions Aorta CTA 10/17/16 1534 Signed Impressions: Service Date/Time: Monday, October 17, 2016 16:28 - CONCLUSION: 1. There is no evidence for aortic dissection. 2. 2.3 cm left adrenal nodule. 3. Nonobstructing right renal stone. 4. There is no pericardial effusion. 5. There is mild compensated cardiomegaly. 6. There are no significant coronary artery calcifications. 7. There is no evidence for central pulmonary emboli on limited views of the pulmonary arteries. Rubén Mariee MD FACR Head CT 10/17/16 1457 Signed Impressions: Service Date/Time: Monday, October 17, 2016 16:19 - CONCLUSION: 1. Possible small, subcentimeter left-sided intraventricular lipoma. 2. Otherwise negative. Kentrell Chan MD Chest X-Ray 10/17/16 1457 Signed Impressions: Service Date/Time: Monday, October 17, 2016 15:10 - CONCLUSION: Cardiomegaly. No acute cardiopulmonary disease. Titi Sarmiento MD Cervical Spine CT 10/17/16 0000 Signed Impressions: Service Date/Time: Monday, October 17, 2016 16:19 - CONCLUSION: 1. Reversal of the normal lordotic curvature with flowing anterior osteophytes from C4-C5 inferiorly characteristic of DISH. 2. Grade I anterolisthesis of C3 on C4 and C4 on C5 which is almost certainly due to marked facet hypertrophy at both of these levels. I do not see an acute fracture. 3. There is encroachment on the neural foramina at multiple levels. This is most severe rightward at C3-C4 where there may be some compromise of the exiting right C4 nerve root. I believe the spinal canal and neural foramina are adequate at all remaining levels. Kentrell Chan MD Objective Remarks GENERAL: This is a well-nourished, well-developed patient, in no apparent distress. Lying comfortably in bed. SKIN: No rashes, ecchymoses or lesions. Cool and dry. Bilateral lower extremities brown in color. HEAD: Atraumatic. Normocephalic. No temporal or scalp tenderness. EYES: Pupils equal round and reactive. Extraocular motions intact. No scleral icterus. No injection or drainage. No nystagmus noted. ENT: Nose without bleeding, purulent drainage or septal hematoma. Throat without erythema, tonsillar hypertrophy or exudate. Uvula midline. Airway patent. NECK: Trachea midline. No JVD or lymphadenopathy. Supple, nontender, no meningeal signs. CARDIOVASCULAR: Regular rate and rhythm without murmurs, gallops, or rubs. Bilateral DP and pedal pulses present 2+. RESPIRATORY: Clear to auscultation. Breath sounds equal bilaterally. No wheezes , rales, or rhonchi. GASTROINTESTINAL: Abdomen soft, non-tender, rounded. + BS x 4Q. No hepato- splenomegaly, or palpable masses. No guarding. MUSCULOSKELETAL: Extremities without clubbing, cyanosis, or edema. No joint tenderness, effusion, or edema noted. No calf tenderness. Negative Homans sign bilaterally. NEUROLOGICAL: Awake and alert. Cranial nerves II through XII intact. Motor and sensory grossly within normal limits. Five out of 5 muscle strength in all muscle groups. Normal speech. Vascular Central Line Catheter: No A/P Assessment and Plan Syncopal/near syncopal episode, Possible vasovagal, neurogenic, orthostatic - Orthostatic blood pressures reviewed, no significant change - ECHO reviewed, EF 50-55% - Continue IVF. Heart healthy diet. - Head CT resulted: possible small, subcentimeter left-sided intraventricular lipoma. - EEG performed this am, awaiting results. - Patient advised "no driving" as he continues to drive - Neurology consulted, appreciate input. MRI/MRA ordered for today. TSH 3.2, vitamin B12 pending, ESR 3. VRE negative. Thoracic aortic aneurysm - Aortic CTA resulted: No evidence of aortic dissection. 2.3 cm left adrenal nodule. Mild compensated cardiomegaly. - Continue to monitor. - Adequate blood pressure control Atrial fibrillation, controlled - Hold beta blockers and Cardizem for now. -Patient adamantly refuses anticoagulation due to history of bleeding ulcers Chronic back and neck pain - Cervical spine CT: No acute fx. Grade I anterolisthesis of C3 on C4 and C4 on C5. - Acetaminophen and [place] PRN DVT Prophylaxis: - Sequential compression devices Written by Brandon Gonzalez PA-C, acting as scribe for Dr. Aguilar on 10/19/16. All or portions of this note were transcribed by scriblinda Gonzalez. I, Dr. Annel Aguilar personally performed the history, physical exam, and medical decision making; and confirmed the accuracy of the information in the transcribed note. Authenticated by Dr. Annel Aguilar on 10/19/16 at 17:59. Brandon Gonzalez Oct 19, 2016 11:18 Annel Aguilar MD Oct 19, 2016 17:59
[2016-10-19 12:00] VITALS: BP 141/88; PULSE 98; RESP 17; O2SAT 94
[2016-10-19] MEDS: ACETAMINOPHEN/HYDROcodone 325 MG/5 MG TAB PO PRN (12:06)
--- NOTE | 2016-10-19 14:18 | MB ---
cc: JAVID LESLIE D.O., ALAN S. M.D. MCDONALD, DAVID SRISAWAT, ANUNPORN M.D. DATE OF CONSULTATION: 10/19/2016 REASON FOR CONSULTATION The patient is a 71-year-old white man who I am seeing for syncope. HISTORY OF PRESENT ILLNESS The patient has a history of chronic atrial fibrillation for at least 15-20 years with unsuccessful ablation in the past. Echocardiogram done in 2010 showed normal LV function with aortic sclerosis and trace MR. He has not followed up with cardiology. The patient has moderate chronic dyspnea on exertion and smokes 1-2 packs per day. He notes chronic mild pedal edema which is unchanged. He notes no PND, orthopnea, palpitations, CVA, claudication, DVT or pulmonary emboli. He does have intense coughing episodes with his smoking and does bring up intermittent sputum. Over the last 2-3 months he notes occasional episodes where during a severe coughing episode he will suddenly pass out for a very short period of time. He otherwise notes no change in symptoms. He was admitted where he got up in the middle of the night to urinate and while urinating he felt light-headed and fell to the ground hitting his head. He did not pass out completely. Again the patient has had no other cardiac symptoms. PAST MEDICAL HISTORY 1. Atrial fibrillation. 2. Hypertension. 3. Tobacco abuse disorder. 4. Prior bleeding ulcer. 5. Erectile dysfunction. 6. Bilateral cataract surgery. 7. Venous insufficiency. SOCIAL HISTORY The patient is and smokes 1-2 packs per day and has 3 mixed drinks and 3 beers a day. FAMILY HISTORY Noncontributory. MEDICATIONS Medication list reviewed. He is on a baby aspirin but also takes at least eight Excedrin a day. He has chronic pain in his back and joints. PHYSICAL EXAMINATION GENERAL: On exam he is alert and oriented x3. He is overweight. VITAL SIGNS: Afebrile. Vital signs stable, with borderline controlled atrial fibrillation. HEENT: There are no xanthelasma and oropharyngeal mucosa is normal. CHEST: Decreased breath sounds and clear. CARDIAC: JVD normal. S1, S2. No murmurs or gallops. ABDOMEN: Benign. EXTREMITIES: No cyanosis, clubbing or edema. PULSES: Carotids without bruits. Radials 1+. Femorals 1-2+ without bruits. Pedals 1+. He has trace edema. NEUROLOGIC: He is not ambulated. IMAGING Head CT showed possible small lipoma. Chest x-ray with cardiomegaly. Aortic CT angiogram showed no dissection with renal stone, adrenal adenoma, and no significant coronary calcifications. ECHOCARDIOGRAM Normal LV function without significant valvular disease. PROBLEMS 1. Syncope/near syncope: These are classic for cough syncope, particularly with his COPD and chronic coughing and micturition syncope. There are no other symptoms or signs. 2. Atrial fibrillation: I am not sure why his cardiac medications have not been continued as this certainly has increased his cardiac rate some. On admission his rate was controlled and certainly we would like him back on them. 3. Hypertension. 4. Obesity. 5. Tobacco abuse disorder. 6. Prior GI bleed with high dose aspirin intake presently. RECOMMENDATIONS 1. The patient really should be back on his cardiac medication for rate control. 2. Continue aspirin. I think the patient is a very poor candidate for anticoagulation, particularly given his prior GI bleed and high dose aspirin usage now. 3. Weight loss and low salt diet. 4. The patient is advised he should not drive and he may need to sit while urinating. He will be leaving immediately for going up [place] for 6 months and he needs to take the records with him to follow-up with his physicians up there. I will not follow but be available if needed. All questions were answered. Baljinder Pompa MD ASG/KUNAL /1:39 PM /1:52 PM
--- NOTE | 2016-10-19 14:46 | MG ---
cc: LEONARDO CASTELLANOS Lab No: [id number] Date: 10/19/2016 Age: Sex: M He fell, hit his head, several episodes, possible cough syncope, history of atrial fibrillation with ablation. DESCRIPTION A symmetric 12 Hz, 40-50 microvolt posterior rhythm is noted. The recording overall is synchronous and symmetric. No hemisphere asymmetries are noted. No epileptiform or seizure activity is seen. Photic stimulation is performed without significant posterior driving. IMPRESSION A normal awake EEG. No evidence for a focal or diffuse abnormality. The patient fell asleep but did not reach stage II sleep. MD MIROSLAVA Trinidad/KUNAL /2:10 PM /2:32 PM
[2016-10-19] MEDS: DILTIAZEM-CD 240 MG CAP ER PO SCH (14:47)
[2016-10-19 16:00] VITALS: BP 131/65; PULSE 99; RESP 16; TEMP 98.4
--- NOTE | 2016-10-19 18:03 | MB ---
cc: LEONARDO CASTELLANOS M.D. DATE OF CONSULTATION 10/19/16 ADDENDUM He has had some thoracic and pain posteriorly in between his shoulder blades after his latest fall. Will check an x-ray of the thoracic spine. I note his echocardiogram was normal here. MD MIROSLAVA Trinidad/EO /5:43 PM /5:49 PM
--- NOTE | 2016-10-19 18:15 | MB ---
cc: EMANUELLEONARDO DATE OF CONSULTATION 10/19/2016 HISTORY OF PRESENT ILLNESS A 71-year-old right-handed man with a history of hypertension, a-fib. He was on Coumadin 20 years ago but has peptic ulcer disease, has not been on anticoagulants since that time, melanoma of the face about 2 years ago. He has a slight chronic cough but it seemed to get worse about 2 months ago and then about five times over the last few months he has been coughing and then had a brief syncope. He usually wakes up before he hits the floor. No odd smells, tastes or laurel vu. He has had for about 6 months some loss of smell. He was urinating just recently and he stopped urinating, went to wash his hands and then passed out. Other times after coughing he will have these jerks or shakes all over his body for a few seconds, he has never passed out with having those. SOCIAL HISTORY He is a smoker. He has six drinks a day. Lives with his . FAMILY HISTORY Negative for cancer, seizure or stroke. REVIEW OF SYSTEMS He denies any chest pain or palpitations. He denies any history of diabetes, hypercholesterolemia, VT, stent, angioplasty, CABG, renal, hepatic, pulmonary disease, thyroid disease, lupus, cancer besides the skin cancer. No history of seizures or stroke. PAST MEDICAL HISTORY As noted, he saw cardiology and had a history of unsuccessful ablation in the past, some chronic dyspnea on exertion. Recent syncope. About 1 out of 10 times he has a coughing spell he will pass out. ALLERGIES NO KNOWN DRUG ALLERGIES. MEDICATIONS He is on: 1. Excedrin 2. Vitamin D. 3. Diltiazem. 4. Metoprolol. 5. 81 of aspirin a day. PHYSICAL EXAMINATION VITAL SIGNS: On exam afebrile, 98-130, standing blood pressure 111, sitting was 147, laying was 166. Another standing blood pressure 118/83. NECK: There were no carotid bruits. HEART: Regular rhythm. I did not detect a murmur. NEURO: Pupils are equal. Visual don are full. Cannot see his disks well. Extraocular movements intact without nystagmus. Face is symmetric with normal station. Tongue was midline. There is no drift. Normal strength in upper and lower extremities bilaterally. Toes downgoing bilaterally. Pinprick was diminished about half way up the rosas bilaterally as he has some history of neuropathy. Pinprick was intact in the hands and face. He is not ataxic on [id number]. Speech is fluent. He is not aphasic. LABORATORY DATA He has been sinus tach here and some a-fib. Sed rate is 3. CBC was normal. RPR has been negative in the past. NUVIA has been negative in the past, 2009. Urine drug screen was normal in the past. UA on this admission was essentially unremarkable. Basic metabolic profile essentially unremarkable. GFR is 59. LFTs troponin, CPK, albumin, B12, TSH, coags all normal. Aortic CTA a small left adrenal nodule 2.3 cm. Chest x-ray cardiomegaly. Cervical spine CT anterolisthesis C3 and C4, C4-C5 grade 1, facette hypertrophy. No acute fracture. Canal looks fine. CT scan of the brain small left sided lipoma, otherwise negative. Review of the CT there may be a small amount of blood or nodule posteriorly in the right cerebellum very peripherally versus an artifact. IMPRESSION Cough syncope. Consider having pulmonary see him to try to limit his cough. I think that a 30 day heart monitor is recommended also. I note his EEGs have been negative. I do want to check an MRI of the brain and MRA of the neck and [place] of [place] to make sure there is no vertebral basalar disease and I will see him back in followup. The main treatment for the cough syncope would be his underlying likely COPD and treatment of a cough as best we can. Otherwise, if no other reason is found and the patient continues to have episodes a tilt table test could be considered. He does see Dr. Quintanilla who could set up the 30-day monitor outpatient. ADDENDUM He has had some thoracic and pain posteriorly in between his shoulder blades after his latest fall. Will check an x-ray of the thoracic spine. I note his echocardiogram was normal here. ADDENDUM He now tells me that two of the times he could not move his legs after the episode, so we will check an MRI of his cervical and thoracic spine. In addition, I note he has had the shaking episodes that he has when he does not pass out. This is likely a variant of convulsive syncope where he has some shaking as the blood pressure goes low, but he does not actually pass out at sometimes. I do not think they are seizures. MD MIROSLAVA Trinidad/TYRELL /5:30 PM /8:45 AM
[2016-10-19 18:32] LABS: BLOOD GAS CARBOXYHEMOGLOBIN 1.5 % (0-4); BLOOD GAS HCO3 24 mmol/L (22-26); BLOOD GAS O2 HGB SATURATION 94 % (90-100); BLOOD GAS OXYGEN CONTENT 17.7 Vol % (12.0-20.0); BLOOD GAS PCO2 38 mmHg (38-42); BLOOD GAS PO2 81 mmHg (61-120); BLOOD GAS TOTAL HGB 13.4 G/DL (12.0-16.0)
[2016-10-19 18:33] LABS: CRITICAL VALUE NO; DRAW SITE RT RADIAL; FIO2 21 %; NUMBER OF ARTERIAL PUNCTURES 1; OXYGEN DEVICE RA; STAT NO; ULNAR PULSE PRESENT
[2016-10-19] MEDS: methylPREDNISolone SOD SUCC 40 MG/1 ML VIAL IV PUSH SCH (21:52)
[2016-10-19] MEDS: METOPROLOL TARTRATE 25 MG TAB PO SCH (21:52)
[2016-10-19] MEDS: ASPIRIN EC 81 MG TABEC PO SCH (22:00)
[2016-10-19] MEDS: AZITHROMYCIN INJ 500 MG in SODIUM CHLOR 0.9% 250 ML INJ 250 ML IV SCH (22:05)
--- NOTE | 2016-10-19 22:35 | RADRPT ---
EXAM DATE/TIME: 10/19/2016 20:11 [facility] COMPARISON: No previous studies available for comparison. INDICATIONS : Pain. Pain after fall. MEDICAL HISTORY : A-fib. SURGICAL HISTORY : Cardiac cath. ENCOUNTER: Subsequent ACUITY: 3 day PAIN SCORE: 8/10 LOCATION: Mid-back. TECHNIQUE: Multiplanar multisequence MRI of the thoracic spine was performed. FINDINGS: VERTEBRA: Minimal chronic compression deformity involving T8 and T9. No acute compression deformity is noted. M inimal degenerative changes are noted throughout the thoracic spine. ALIGNMENT: Normal. CORD: Normal position and configuration. T1-T2: Normal. T2-T3: The thecal sac has a normal diameter. No evidence of disc bulge or protrusion. T3-T4: The thecal sac has a normal diameter. No evidence of disc bulge or protrusion. T4-T5: The thecal sac has a normal diameter. No evidence of disc bulge or protrusion. T5-T6: The thecal sac has a normal diameter. No evidence of disc bulge or protrusion. T6-T7: The thecal sac has a normal diameter. No evidence of disc bulge or protrusion. T7-T8: The thecal sac has a normal diameter. No evidence of disc bulge or protrusion. T8-T9: The thecal sac has a normal diameter. No evidence of disc bulge or protrusion. T9-T10: The thecal sac has a normal diameter. No evidence of disc bulge or protrusion. T10-T11: The thecal sac has a normal diameter. No evidence of disc bulge or protrusion. T11-T12: The thecal sac has a normal diameter. No evidence of disc bulge or protrusion. T12-L1: The thecal sac has a normal diameter. No evidence of disc bulge or protrusion. CONCLUSION: 1. Minimal chronic compression deformities involving T8 and T9. 2. Minimal degenerative changes throughout the thoracic spine. 3. No thoracic cord abnormality, focal disc herniation or spinal stenosis. Peter Avalos MD on October 19, 2016 at 22:30 Board Certified Radiologist. This report was verified electronically.
--- NOTE | 2016-10-19 22:37 | RADRPT ---
EXAM DATE/TIME: 10/19/2016 20:11 [facility] COMPARISON: CT CERVICAL SPINE W/O CONTRAST, October 17, 2016, 16:19. INDICATIONS : Pain. Pain after fall. MEDICAL HISTORY : A-fib. SURGICAL HISTORY : Cardiac cath. ENCOUNTER: Subsequent ACUITY: 3 day PAIN SCORE: 8/10 LOCATION: Neck TECHNIQUE: Multiplanar, multisequence MRI examination of the cervical spine was performed. FINDINGS: There is evidence of reversal of the normal cervical lordosis. There is partial bony fusion of C5 an d C6. Diffuse disc osteophyte complex is noted at C5-6 and to a lesser extent at C4-5 resulting in e ffacement of the anterior thecal sac at these levels but no spinal stenosis. There is no acute fract ure of prevertebral soft tissue swelling of the cervical spine. The bony relationship and alignment b etween C1 and C2 is well maintained. The cervical spinal cord is normal in signal intensity and morph ology. The craniocervical junction is normal. C2-3: There is no significant spinal stenosis. Minimal diffuse disc osteophyte complex slightly asymmetric to the left is noted. Mild bilateral foraminal narrowing is noted. C3-4: Minimal diffuse disc osteophyte complex is noted resulting in mild bilateral foraminal narrowing but no spinal stenosis. No focal disc herniation is noted. C4-5: Mild diffuse disc osteophyte complex is noted resulting in effacement of the anterior thecal sac but no spinal stenosis. Mild bilateral foraminal narrowing is noted. No focal disc herniation is noted. C5-6: There is mild diffuse disc osteophyte complex resulting in effacement of the anterior thecal sac but no spinal stenosis. Mild bilateral foraminal narrowing is noted. No focal disc herniation is noted. C6-7: There is no significant spinal stenosis or neural foraminal narrowing. C7-T1: There is no significant spinal stenosis or neural foraminal narrowing. CONCLUSION: 1. No cervical spinal cord abnormality. 2. Reversal of the normal cervical lordosis with bony fusion of C5 and C6 and multilevel disc osteoph yte complexes resulting in mild bilateral foraminal narrowing from C2 through C6. 3. No acute fracture or prevertebral soft tissue swelling. Peter Avalos MD on October 19, 2016 at 22:21 Board Certified Radiologist. This report was verified electronically.
--- NOTE | 2016-10-19 23:25 | MB ---
cc: Pakr MURILLO M.D. DATE OF CONSULTATION 10/19/16 REASON FOR CONSULTATION COPD and chronic cough. HISTORY OF PRESENT ILLNESS This is a 70-year-old white male with a history of atrial fibrillation and macular degeneration who was admitted to the emergency room following a fall. The patient apparently was quite dizzy and had a near blackout spell and has had similar falls recently after coughing spells. The patient has been coughing for several weeks and he has been heavy smoker for over 50 years and is trying to quit. He has had no chest pains. No hemoptysis. No fevers or chills, but has had some leg swelling, mostly on the right side. Following admission, the patient did have a CT of the head and aortic CTA done. The head CT demonstrated possible left-sided intraventricular lipoma but was otherwise negative. His chest x-ray showed no active disease but had cardiomegaly. The patient has been on oxygen intermittently. He is not short of breath at rest. He denies wheezing. PAST MEDICAL HISTORY 1. History of hypertension 2. Atrial fibrillation, 3. Hyperlipidemia 4. Thoracic aortic aneurysm 5. Macular degeneration. 6. Cardiac ablation HABITS The patient smoked half to one-pack per day for 55 years. Alcohol use moderate daily. MEDICATIONS 1. Diltiazem 240 mg a day. 2. Metoprolol 25 mg b.i.d. 3. Aspirin 25 mg a day 4. Excedrin one daily. FAMILY HISTORY Noncontributory. Mother had cancer and father had diabetes. ALLERGIES None listed. REVIEW OF SYSTEMS The patient is overweight. He has dizziness and near blackout spells. He has had palpitations. No abdominal pains. No leg or calf muscle pains. No depression or anxiety. Denies skin rash. PHYSICAL EXAMINATION GENERAL: This is a well-built elderly white male who is alert in no acute distress. No pallor, no icterus, no clubbing. There is mild peripheral edema. VITAL SIGNS: Blood pressure 140/80, pulse is 78, respirations 20, temperature 97.5. HEENT: Head normocephalic. Pupils are reactive. Tongue is moist. Throat is injected. Nasal mucosa edematous. NECK: Supple. No bruits or thyroid enlargement or lymphadenopathy. CHEST: Distant breath sounds with expiratory wheezes bilaterally. No crackles on either side. HEART: The heart sounds are irregular S1-S2. No murmur. No S3. ABDOMEN: Soft, obese without masses. No organomegaly or tenderness. Bowel sounds are active. EXTREMITIES: Mild edema with diminished pulses. NEUROLOGIC: Reflexes are 1+ with no gross motor deficits. Cranial nerves grossly intact. RECTAL: Deferred. SKIN: No lesions. IMPRESSION 1. COPD with chronic bronchitis and emphysema 2. Near syncopal episode. 3. Atrial fibrillation with ASHD 4. Exogenous obesity. PLAN The patient will be sent for a pulmonary function study with bronchodilators, nebulized DuoNeb solution added q.i.d. We will also place him on Zithromax 500 mg IV daily and Solu-Medrol 40 mg every 8 hours. Oxygen 2 liters as needed. The patient was counseled about quitting cigarettes. We will get a blood gas study as well. Cough suppressants on a p.r.n. basis. Thank you, Dr. Hurst, for this consultation. MD PETRA Powers/ /8:01 PM /11:09 PM
[2016-10-20] VITALS (8 sets, daily range): BP systolic 122–162; BP diastolic 60–81; PULSE 60–91; RESP 18; TEMP 98–98.2; O2SAT 95–98
[2016-10-20] MEDS: methylPREDNISolone SOD SUCC 40 MG/1 ML VIAL IV PUSH SCH (06:00)
[2016-10-20] MEDS: SODIUM CHLOR 0.9% 1000 ML INJ 1,000 ML IV SCH (06:10)
[2016-10-20] MEDS: ACETAMINOPHEN/HYDROcodone 325 MG/7.5 MG TAB PO PRN ×2 (06:27→23:03)
[2016-10-20] MEDS: ASPIRIN EC 81 MG TABEC PO SCH (08:04)
[2016-10-20] MEDS: DILTIAZEM-CD 240 MG CAP ER PO SCH (08:04)
[2016-10-20] MEDS: METOPROLOL TARTRATE 25 MG TAB PO SCH ×2 (08:04→23:03)
[2016-10-20] MEDS ORDERED: GADODIAMIDE PF 287 MG/ML 20 ML VIAL (for RAD MRI) IV ONE (08:57)
--- NOTE | 2016-10-20 10:03 | RADRPT ---
EXAM DATE/TIME: 10/20/2016 09:24 [facility] COMPARISON: No previous studies available for comparison. INDICATIONS : Evaluate for infiltrate. RADIATION DOSE: 9.89 CTDIvol (mGy) MEDICAL HISTORY : Cardiovascular disease. Hypertension. SURGICAL HISTORY : None. ENCOUNTER: Initial ACUITY: 1 day PAIN SCALE: 4/10 LOCATION: Bilateral chest TECHNIQUE: Volumetric scanning of the chest was performed. Using automated exposure control and adjustment of t he mA and/or kV according to patient size, radiation dose was kept as low as reasonably achievable to obtain optimal diagnostic quality images. FINDINGS: LUNGS: There is no consolidation or pneumothorax. No concerning pulmonary nodule is visualized. PLEURAE: There is no pleural thickening or pleural effusion. MEDIASTINUM: The heart and great vessels demonstrate no acute abnormality. There is no mediastinal or hilar lymph adenopathy. AXILLAE: Within normal limits. No lymphadenopathy. MUSCULOSKELETAL: Within normal limits for patient age. MISCELLANEOUS: The visualized upper abdominal organs demonstrate no acute abnormality. CONCLUSION: Negative noncontrast CT scan of the chest. I do not see evidence for an infiltrate.. Rubén Mariee MD FACR on October 20, 2016 at 9:59 Board Certified Radiologist. This report was verified electronically.
--- NOTE | 2016-10-20 10:08 | RADRPT ---
EXAM DATE/TIME: 10/20/2016 08:33 [facility] COMPARISON: No previous studies available for comparison. INDICATIONS : Frequent falls. CONTRAST: 20 cc Omniscan (gadodiamide) IV MEDICAL HISTORY : None. SURGICAL HISTORY : None. ENCOUNTER: Initial ACUITY: 1 week PAIN SCORE: 0/10 LOCATION: cranial Percent stenosis is calculated using the diameter of the stenotic region over the diameter of the nor mal distal internal carotid artery. TECHNIQUE: Bolus infused MRA of the extracranial circulation was performed using a neurovascular coil. Post pro cessing was performed including rotating subvolume maximum intensity projections of each carotid landry ry, rotating full volume maximum intensity projections of both carotid arteries, sagittal and coronal sliding thin slab reformations of each carotid artery, and left oblique sliding thin slab reformatio n through the aortic arch to include the origin of the arch branch vessels. FINDINGS: AORTIC ARCH: There is a three vessel origin of the great vessels from the aorta. No evidence of ostial narrowing. RIGHT CAROTID: The common carotid artery is intact. The carotid bulb has a normal configuration without ulceration or narrowing. The internal carotid artery lumen is smooth without stenosis. The external carotid ar phan is intact. LEFT CAROTID: The common carotid artery is intact. The carotid bulb has a normal configuration without ulceration or narrowing. The internal carotid artery lumen is smooth without stenosis. The external carotid ar phan is intact. VERTEBRALS: The left vertebral is dominant.. CONCLUSION: Negative for stenosis.. Rubén Mariee MD FACR on October 20, 2016 at 10:05 Board Certified Radiologist. This report was verified electronically.
--- NOTE | 2016-10-20 10:09 | RADRPT ---
EXAM DATE/TIME: 10/20/2016 08:33 [facility] COMPARISON: No previous studies available for comparison. INDICATIONS : Frequent falls. MEDICAL HISTORY : None. SURGICAL HISTORY : None. ENCOUNTER: Initial ACUITY: 1 week PAIN SCORE: 0/10 LOCATION: Cranial Please note a normal MRA of the brain does not entirely exclude the possibility of a small aneurysm, nor the possibility of distal intracranial vessel disease. TECHNIQUE: 3D time of flight MRA was performed. Source images, multiplanar STS MIP, and 3D volum e MIP reconstructions were reviewed. FINDINGS: There is nonvisualization of the A1 segment of the left anterior cerebral artery, probably a normal v ariant. Basilar artery is widely patent. The left vertebral is dominant. There is no evidence for major branch vessel occlusion. CONCLUSION: Negative MRA of the brain. Rubén Mariee MD FACR on October 20, 2016 at 10:04 Board Certified Radiologist. This report was verified electronically.
--- NOTE | 2016-10-20 10:10 | RADRPT ---
EXAM DATE/TIME: 10/20/2016 08:33 [facility] COMPARISON: No previous studies available for comparison. INDICATIONS : Frequent falls. CONTRAST: 20 cc Omniscan (gadodiamide) IV MEDICAL HISTORY : None. SURGICAL HISTORY : None. ENCOUNTER: Initial ACUITY: 1 week PAIN SCORE: 0/10 LOCATION: Cranial TECHNIQUE: Multiplanar, multisequence MRI of the brain was performed both prior to and following the administration of paramagnetic contrast. FINDINGS: There is no restricted diffusion evident. Minimal periventricular white matter changes are noted in a very nonspecific fashion. There are no e xtra-axial fluid collections appreciated. Midline structures are intact. Following intravenous administration of Gadolinium, there is no abnormal contrast enhancement evident . CONCLUSION: 1. Negative MRI of the brain for an acute ischemic event. 2. There are no extra-axial fluid collections appreciated. There is no significant hemosiderin depo sition. Rubén Mariee MD FACR on October 20, 2016 at 10:04 Board Certified Radiologist. This report was verified electronically.
--- NOTE | 2016-10-20 10:47 | HHI.PR ---
Subjective Remarks The patient said that his cough was better. He did endorse a productive cough. He said he had a lot of pain between his shoulder blades from the fall. He says he has neuropathy in his lower extremities which he says he was told was from smoking. He said he came down with a cold a few weeks ago and is still coughing from that. Family at the bedside. Discussed with nursing Objective Vitals Vital Signs Date Time Temp Pulse Resp B/P Pulse Ox O2 Delivery O2 Flow Rate FiO2 10/20/16 10:12 98.1 77 18 162/81 95 10/20/16 08:05 Room Air 10/20/16 04:00 98.1 85 18 126/61 98 10/20/16 01:30 91 10/20/16 00:00 98.0 87 18 128/65 98 10/19/16 16:00 98.4 99 16 131/65 10/19/16 12:00 98 17 141/88 94 I/O 10/19/16 10/19/16 10/19/16 10/20/16 10/20/16 10/20/16 07:00 15:00 23:00 07:00 15:00 23:00 Intake Total 416 ml 1252 ml Output Total 675 ml 850 ml Balance 416 ml 577 ml -850 ml Intake Oral 720 ml IV Total 416 ml 532 ml Output Urine Total 675 ml 850 ml # Bowel Movements 0 Result Diagram: 10/18/16 0537 10/18/16 0537 Imaging Last Impressions Chest CT 10/20/16 0916 Signed Impressions: Service Date/Time: Thursday, October 20, 2016 09:24 - CONCLUSION: Negative noncontrast CT scan of the chest. I do not see evidence for an infiltrate.. Rubén Mariee MD FACR Neck Magnetic Resonance Angiography 10/20/16 0000 Signed Impressions: Service Date/Time: Thursday, October 20, 2016 08:33 - CONCLUSION: Negative for stenosis.. Rubén Mariee MD FACR Head Magnetic Resonance Angiography 10/20/16 0000 Signed Impressions: Service Date/Time: Thursday, October 20, 2016 08:33 - CONCLUSION: Negative MRA of the brain. Rubén Mariee MD FACR Brain MRI 10/20/16 0000 Signed Impressions: Service Date/Time: Thursday, October 20, 2016 08:33 - CONCLUSION: 1. Negative MRI of the brain for an acute ischemic event. 2. There are no extra-axial fluid collections appreciated. There is no significant hemosiderin deposition. Rubén Mariee MD FACR Thoracic Spine MRI 10/19/16 0000 Signed Impressions: Service Date/Time: Wednesday, October 19, 2016 20:11 - CONCLUSION: 1. Minimal chronic compression deformities involving T8 and T9. 2. Minimal degenerative changes throughout the thoracic spine. 3. No thoracic cord abnormality, focal disc herniation or spinal stenosis. Peter Avalos MD Cervical Spine MRI 10/19/16 0000 Signed Impressions: Service Date/Time: Wednesday, October 19, 2016 20:11 - CONCLUSION: 1. No cervical spinal cord abnormality. 2. Reversal of the normal cervical lordosis with bony fusion of C5 and C6 and multilevel disc osteophyte complexes resulting in mild bilateral foraminal narrowing from C2 through C6. 3. No acute fracture or prevertebral soft tissue swelling. Peter Avalos MD Aorta CTA 10/17/16 1534 Signed Impressions: Service Date/Time: Monday, October 17, 2016 16:28 - CONCLUSION: 1. There is no evidence for aortic dissection. 2. 2.3 cm left adrenal nodule. 3. Nonobstructing right renal stone. 4. There is no pericardial effusion. 5. There is mild compensated cardiomegaly. 6. There are no significant coronary artery calcifications. 7. There is no evidence for central pulmonary emboli on limited views of the pulmonary arteries. Rubén Mariee MD FACR Head CT 10/17/16 1457 Signed Impressions: Service Date/Time: Monday, October 17, 2016 16:19 - CONCLUSION: 1. Possible small, subcentimeter left-sided intraventricular lipoma. 2. Otherwise negative. Kentrell Chan MD Chest X-Ray 10/17/16 1457 Signed Impressions: Service Date/Time: Monday, October 17, 2016 15:10 - CONCLUSION: Cardiomegaly. No acute cardiopulmonary disease. Titi Sarmiento MD Cervical Spine CT 10/17/16 0000 Signed Impressions: Service Date/Time: Monday, October 17, 2016 16:19 - CONCLUSION: 1. Reversal of the normal lordotic curvature with flowing anterior osteophytes from C4-C5 inferiorly characteristic of DISH. 2. Grade I anterolisthesis of C3 on C4 and C4 on C5 which is almost certainly due to marked facet hypertrophy at both of these levels. I do not see an acute fracture. 3. There is encroachment on the neural foramina at multiple levels. This is most severe rightward at C3-C4 where there may be some compromise of the exiting right C4 nerve root. I believe the spinal canal and neural foramina are adequate at all remaining levels. Kentrell Chan MD Objective Remarks GENERAL: This is a well-nourished, well-developed patient, in no apparent distress. SKIN: No rashes, ecchymoses or lesions. Cool and dry. Bilateral lower extremities brown in color. HEAD: Atraumatic. Normocephalic. No temporal or scalp tenderness. EYES: Pupils equal round and reactive. Extraocular motions intact. No scleral icterus. No injection or drainage. No nystagmus noted. ENT: Nose without bleeding, purulent drainage or septal hematoma. Throat without erythema, tonsillar hypertrophy or exudate. Uvula midline. Airway patent. NECK: Trachea midline. No JVD or lymphadenopathy. Supple, nontender, no meningeal signs. CARDIOVASCULAR: Regular rate and rhythm without murmurs, gallops, or rubs. RESPIRATORY: Clear to auscultation. Breath sounds equal bilaterally. No wheezes , rales, or rhonchi. GASTROINTESTINAL: Abdomen soft, non-tender, rounded. + BS x 4Q. No hepato- splenomegaly, or palpable masses. No guarding. MUSCULOSKELETAL: Extremities without clubbing, cyanosis, or edema. No joint tenderness, effusion, or edema noted. NEUROLOGICAL: Awake and alert. Cranial nerves II through XII intact. Neuropathy in LEs. Five out of 5 muscle strength in all muscle groups. Normal speech. PSYCH: Mood and affect appropriate. Medications and IVs Current Medications Medications (Trade) Dose Ordered Sig/Nayan Route Start Time Stop Time Status Last Admin Sodium Chloride 2 ml 2 ml UNSCH PRN IVF 10/17/16 15:00 (NS 1000 ml Inj) 1,000 ml @ 50 mls/hr Q20H IV 10/17/16 18:10 10/19/16 10:16 (Tylenol) 650 mg Q4H PRN PO 10/17/16 19:30 10/17/16 19:48 ([place] 5-325 Mg) 1 tab Q4H PRN PO 10/18/16 03:00 10/19/16 12:06 ([place] 7.5-325 Mg) 1 tab Q4H PRN PO 10/18/16 03:00 10/20/16 06:27 (Narcan Inj) 0.4 mg UNSCH PRN IV 10/18/16 03:00 (Cardizem Cd) 240 mg DAILY PO 10/19/16 13:45 10/20/16 08:04 Metoprolol Tartrate 25 mg 25 mg Q12HR PO 10/19/16 21:00 10/20/16 08:04 (Zithromax Inj/ NS 250 ml Inj) 250 ml @ 250 mls/hr Q24H IV 10/19/16 20:00 10/19/16 22:05 (Ecotrin Ec) 81 mg DAILY PO 10/19/16 20:00 10/20/16 08:04 (Flexeril) 10 mg Q8H PRN PO 10/20/16 11:15 (SoluMEDROL INJ) 40 mg BID IV PUSH 10/20/16 21:00 UNV A/P Problem List: (1) Syncope ICD Code: R55 Status: Acute Assessment and Plan Cough syncope Appreciate cardiology and neurology consults. Orthostatic blood pressures reviewed, no significant change. ECHO reviewed, EF 50-55%. Head CT resulted: possible small, subcentimeter left-sided intraventricular lipoma. EEG unremarkable. MRI and MRA brain and neck unremarkable. - Patient advised "no driving" as he continues to drive. - follow up with neurology. - cough meds as needed. COPD Appreciate pulmonology consult. CT chest unremarkable. - continue antibiotics, steroids and nebs per pulmonary. - incentive spirometry. Neuropathy Involving the legs. - start gabapentin. Thoracic aortic aneurysm Aortic CTA resulted: No evidence of aortic dissection. 2.3 cm left adrenal nodule. Mild compensated cardiomegaly. - Continue to monitor. - Adequate blood pressure control Atrial fibrillation Heart rate controlled - resume home meds. - Patient adamantly refuses anticoagulation due to history of bleeding ulcers. Chronic back and neck pain Cervical spine CT: No acute fx. Grade I anterolisthesis of C3 on C4 and C4 on C5. Cervical MRI: Reversal of the normal cervical lordosis with bony fusion of C5 and C6 and multilevel disc osteophyte complexes resulting in mild bilateral foraminal narrowing from C2 through C6. - Acetaminophen and [place] PRN. Add Flexeril. - physical therapy. DVT Prophylaxis: - Sequential compression devices Discharge Planning Awaiting clinical improvement. Problem Qualifiers (1) Syncope: Qualified Code: R55 - Vasovagal syncope Eze Brownlee DO Oct 20, 2016 10:47
[2016-10-20] MEDS: RESP: ALBUTEROL 2.5 MG/IPRATROPIUM 0.5 MG NEB (SCH) NEB ×3 (11:05→21:17)
[2016-10-20] MEDS ORDERED: CYCLOBENZAPRINE HCL 10 MG TAB PO PRN (11:15)
[2016-10-20 13:06] LABS: BICARBONATE 27.5 MEQ/L (21.0-32.0); MAGNESIUM 1.7 MG/DL (1.5-2.5); POTASSIUM 4.3 MEQ/L (3.5-5.1)
[2016-10-20] MEDS: GABAPENTIN 300 MG CAP PO SCH ×2 (13:32→18:04)
--- NOTE | 2016-10-20 14:25 | HHI.PR ---
Subjective Remarks He is feeling better. Off o2 . CT done. Less cough today Objective Vital Signs Date Time Temp Pulse Resp B/P Pulse Ox O2 Delivery O2 Flow Rate FiO2 10/20/16 13:42 72 10/20/16 13:27 98.2 76 18 140/69 95 10/20/16 10:12 98.1 77 18 162/81 95 10/20/16 08:05 Room Air 10/20/16 04:00 98.1 85 18 126/61 98 10/20/16 01:30 91 10/20/16 00:00 98.0 87 18 128/65 98 10/19/16 16:00 98.4 99 16 131/65 I/O 10/19/16 10/19/16 10/19/16 10/20/16 10/20/16 10/20/16 07:00 15:00 23:00 07:00 15:00 23:00 Intake Total 416 ml 1252 ml Output Total 675 ml 850 ml Balance 416 ml 577 ml -850 ml Intake Oral 720 ml IV Total 416 ml 532 ml Output Urine Total 675 ml 850 ml # Voids 1 # Bowel Movements 0 Result Diagram: 10/18/16 0537 10/20/16 1200 Objective Remarks PHYSICAL EXAMINATION GENERAL: This is a well-built elderly white male who is alert in no acute distress. No pallor, no icterus, no clubbing. There is mild peripheral edema. HEENT: Head normocephalic. Pupils are reactive. Tongue is moist. Throat is injected. Nasal mucosa edematous. NECK: Supple. No bruits or thyroid enlargement or lymphadenopathy. CHEST: Distant breath sounds with expiratory wheezes bilaterally. No crackles on either side. HEART: The heart sounds are irregular S1-S2. No murmur. No S3. ABDOMEN: Soft, obese without masses. No organomegaly or tenderness. Bowel sounds are active. EXTREMITIES: Mild edema with diminished pulses. NEUROLOGIC: Reflexes are 1+ with no gross motor deficits. Cranial nerves grossly intact. RECTAL: Deferred. SKIN: No lesions. Assessment and Plan Assessment and Plan IMPRESSION 1. COPD with chronic bronchitis and emphysema 2. Near syncopal episode. 3. Atrial fibrillation with ASHD 4. Exogenous obesity. Plan : 1. Nebs qid , duoneb. 2. Continue Zithromax 500 mg daily. 3. PFT in am. 4. Continue solumedrol 40 mg IV q8h 5. CBc,BMP. Park Garcia MD Oct 20, 2016 14:25
[2016-10-20] MEDS: ACETAMINOPHEN/HYDROcodone 325 MG/5 MG TAB PO PRN (14:49)
[2016-10-20] MEDS ORDERED: GLUCAGON 1 MG/ML VIAL OTHER PRN (17:30)
[2016-10-20] MEDS ORDERED: DEXTROSE 50% IN WATER 50 ML VIAL(D50) IV PRN (17:30)
[2016-10-20] MEDS ORDERED: SODIUM PHOSPHATE INJ 30 MMOL in SODIUM CHLOR 0.9% 250 ML INJ 250 ML IV ONE (18:00)
--- NOTE | 2016-10-20 18:19 | HHI.PR ---
Subjective Remarks afib Objective Vital Signs Date Time Temp Pulse Resp B/P Pulse Ox O2 Delivery O2 Flow Rate FiO2 10/20/16 17:50 98.0 60 18 122/61 95 10/20/16 13:42 72 10/20/16 13:27 98.2 76 18 140/69 95 10/20/16 10:12 98.1 77 18 162/81 95 10/20/16 08:05 Room Air 10/20/16 04:00 98.1 85 18 126/61 98 10/20/16 01:30 91 10/20/16 00:00 98.0 87 18 128/65 98 I/O 10/19/16 10/19/16 10/19/16 10/20/16 10/20/16 10/20/16 07:00 15:00 23:00 07:00 15:00 23:00 Intake Total 416 ml 1252 ml Output Total 675 ml 850 ml Balance 416 ml 577 ml -850 ml Intake Oral 720 ml IV Total 416 ml 532 ml Output Urine Total 675 ml 850 ml # Voids 1 # Bowel Movements 0 Result Diagram: 10/18/16 0537 10/20/16 1200 Other Results mri brain nl mra cow and neck neg vb ok mri c and t spine ok labs ok standing bp ok ct chest neg Objective Remarks no new spells nl exam Assessment and Plan Assessment and Plan imp cough syncope i rec a [address] bustillos o/p will sign off eeg nl as far as his afib goes and any need for anticoagulation i defer to med team Titi Hurst MD Oct 20, 2016 18:18
[2016-10-20] MEDS ORDERED: methylPREDNISolone SOD SUCC 40 MG/1 ML VIAL IV PUSH SCH (21:00)
[2016-10-20] MEDS: INSULIN ASPART SUPPLEMENTAL SCALE SQ SCH (23:04)
[2016-10-20] MEDS: AZITHROMYCIN INJ 500 MG in SODIUM CHLOR 0.9% 250 ML INJ 250 ML IV SCH (23:06)
[2016-10-21 01:18] VITALS: PULSE 83
[2016-10-21] MEDS: SODIUM CHLOR 0.9% 1000 ML INJ 1,000 ML IV SCH (02:10)
[2016-10-21] MEDS: ACETAMINOPHEN/HYDROcodone 325 MG/5 MG TAB PO PRN (04:16)
[2016-10-21 07:37] VITALS: BP_SYST 123; BP_SYST 125; BP_SYST 129; BP_DIAS 70; BP_DIAS 73; BP_DIAS 85; PULSE 76; RESP 20; TEMP 97.1; O2SAT 97
[2016-10-21] MEDS: INSULIN ASPART SUPPLEMENTAL SCALE SQ SCH (07:40)
[2016-10-21] MEDS: RESP: ALBUTEROL 2.5 MG/IPRATROPIUM 0.5 MG NEB (SCH) NEB (08:32)
[2016-10-21] MEDS ORDERED: HYDR-3516 PO (09:19)
[2016-10-21] MEDS ORDERED: NEUR300C PO (09:19)
[2016-10-21] MEDS ORDERED: AZIT500T2 PO (09:19)
[2016-10-21] MEDS ORDERED: CYCL1TAB29 PO (09:19)
[2016-10-21] MEDS ORDERED: GUAISYP4 PO (09:19)
--- NOTE | 2016-10-21 09:22 | HHI.DCPOC ---
Discharge Care Plan Diagnosis: (1) Syncope (2) Bronchitis (3) Chronic pain Goals to Promote Your Health * To prevent worsening of your condition and complications * To maintain your health at the optimal level Directions to Meet Your Goals Take your medications as prescribed Follow your dietary instruction Follow activity as directed Keep your appointments as scheduled Take your immunizations and boosters as scheduled If your symptoms worsen call your PCP, if no PCP go to Urgent Care Center or Emergency Room Smoking is Dangerous to Your Health. Avoid second hand smoke Call the 24-hour hour crisis hotline for domestic abuse at Eze Brownlee DO Oct 21, 2016 09:22
--- NOTE | 2016-10-21 09:34 | HHI.DS ---
Discharge Summary Admission Date Oct 17, 2016 at 17:51 Discharge Date: Oct 21, 2016 Admitting Diagnosis syncope (1) Syncope ICD Code: R55 Diagnosis: Principal (2) Bronchitis ICD Code: J40 (3) Chronic pain ICD Code: G89.29 Procedures None. Brief History - From Admission Mr. Love is a 71-year-old male with a known history of atrial fibrillation with previous ablation, macular degeneration, arthritis and chronic joint pain who presents to the ED after falling and hitting his head at home. Patient supposedly had gotten up out of bed around 0530 to use the restroom. He had just finished urinating while standing, went to go wash his hands, immediately felt dizzy and fell to the ground, hitting his head on the vanity. Per patient report he has had five similar episodes in the past few weeks which were all precipitated by his "coughing spells". After these coughing episodes he feels like he "looses all his strength and control in his lower extremities" and falls to the floor, without any loss of consciousness. This "loss of control" and "loss of feeling" is for a few short minutes and then slowly returns. Patient is being seen by Dr. Marin for atrial fibrillation and does continue to take Metoprolol and Diltazem. Denies any vision loss or vertigo. Denies any associated nausea, vomiting or loss of bladder or bowel control. Denies any chest pain, fever or shortness of breath. CBC/BMP: 10/18/16 0537 10/20/16 1200 Significant Findings Laboratory Tests Test 10/20/16 12:00 Estimat Glomerular Filtration 64 ML/MIN (>89) Rate Random Glucose 276 MG/DL (74-106) Phosphorus Level 1.3 MG/DL (2.5-4.9) Imaging Last Impressions Chest CT 10/20/16 0916 Signed Impressions: Service Date/Time: Thursday, October 20, 2016 09:24 - CONCLUSION: Negative noncontrast CT scan of the chest. I do not see evidence for an infiltrate.. Rubén Mariee MD FACR Neck Magnetic Resonance Angiography 10/20/16 0000 Signed Impressions: Service Date/Time: Thursday, October 20, 2016 08:33 - CONCLUSION: Negative for stenosis.. Rubén Mariee MD FACR Head Magnetic Resonance Angiography 10/20/16 0000 Signed Impressions: Service Date/Time: Thursday, October 20, 2016 08:33 - CONCLUSION: Negative MRA of the brain. Rubén Mariee MD FACR Brain MRI 10/20/16 Signed Impressions: Service Date/Time: Thursday, October 20, 2016 08:33 - CONCLUSION: 1. Negative MRI of the brain for an acute ischemic event. 2. There are no extra-axial fluid collections appreciated. There is no significant hemosiderin deposition. Rubén Mariee MD FACR Thoracic Spine MRI 10/19/16 0000 Signed Impressions: Service Date/Time: Wednesday, October 19, 2016 20:11 - CONCLUSION: 1. Minimal chronic compression deformities involving T8 and T9. 2. Minimal degenerative changes throughout the thoracic spine. 3. No thoracic cord abnormality, focal disc herniation or spinal stenosis. Peter Avalos MD Cervical Spine MRI 10/19/16 0000 Signed Impressions: Service Date/Time: Wednesday, October 19, 2016 20:11 - CONCLUSION: 1. No cervical spinal cord abnormality. 2. Reversal of the normal cervical lordosis with bony fusion of C5 and C6 and multilevel disc osteophyte complexes resulting in mild bilateral foraminal narrowing from C2 through C6. 3. No acute fracture or prevertebral soft tissue swelling. Peter Avalos MD Aorta CTA 10/17/16 1534 Signed Impressions: Service Date/Time: Monday, October 17, 2016 16:28 - CONCLUSION: 1. There is no evidence for aortic dissection. 2. 2.3 cm left adrenal nodule. 3. Nonobstructing right renal stone. 4. There is no pericardial effusion. 5. There is mild compensated cardiomegaly. 6. There are no significant coronary artery calcifications. 7. There is no evidence for central pulmonary emboli on limited views of the pulmonary arteries. Rubén Mariee MD FACR Head CT 10/17/16 8067 Signed Impressions: Service Date/Time: Monday, October 17, 2016 16:19 - CONCLUSION: 1. Possible small, subcentimeter left-sided intraventricular lipoma. 2. Otherwise negative. Kentrell Chan MD Chest X-Ray 10/17/16 1457 Signed Impressions: Service Date/Time: Monday, October 17, 2016 15:10 - CONCLUSION: Cardiomegaly. No acute cardiopulmonary disease. Titi Sarmiento MD Cervical Spine CT 10/17/16 0000 Signed Impressions: Service Date/Time: Monday, October 17, 2016 16:19 - CONCLUSION: 1. Reversal of the normal lordotic curvature with flowing anterior osteophytes from C4-C5 inferiorly characteristic of DISH. 2. Grade I anterolisthesis of C3 on C4 and C4 on C5 which is almost certainly due to marked facet hypertrophy at both of these levels. I do not see an acute fracture. 3. There is encroachment on the neural foramina at multiple levels. This is most severe rightward at C3-C4 where there may be some compromise of the exiting right C4 nerve root. I believe the spinal canal and neural foramina are adequate at all remaining levels. Kentrell Chan MD PE at Discharge GENERAL: This is a well-nourished, well-developed patient, in no apparent distress. SKIN: No rashes, ecchymoses or lesions. Cool and dry. Bilateral lower extremities brown in color. HEAD: Atraumatic. Normocephalic. No temporal or scalp tenderness. EYES: Pupils equal round and reactive. Extraocular motions intact. No scleral icterus. No injection or drainage. No nystagmus noted. ENT: Nose without bleeding, purulent drainage or septal hematoma. Throat without erythema, tonsillar hypertrophy or exudate. Uvula midline. Airway patent. NECK: Trachea midline. No JVD or lymphadenopathy. Supple, nontender, no meningeal signs. CARDIOVASCULAR: Regular rate and rhythm without murmurs, gallops, or rubs. RESPIRATORY: Clear to auscultation. Breath sounds equal bilaterally. No wheezes , rales, or rhonchi. GASTROINTESTINAL: Abdomen soft, non-tender, rounded. + BS x 4Q. No hepato- splenomegaly, or palpable masses. No guarding. MUSCULOSKELETAL: Extremities without clubbing, cyanosis, or edema. No joint tenderness, effusion, or edema noted. NEUROLOGICAL: Awake and alert. Cranial nerves II through XII intact. Neuropathy in LEs. Five out of 5 muscle strength in all muscle groups. Normal speech. PSYCH: Mood and affect appropriate. Pt update on day of discharge The patient feels well. He said he is breathing fine. He has not had any further coughing fits. He says the pain medications are working great. Discussed with case management. Hospital Course Cough syncope Cardiology and neurology were consulted. Syncope thought to be secondary to "cough syncope". Orthostatic blood pressures were monitored daily. ECHO reviewed , EF 50-55%. Head CT resulted: possible small, subcentimeter left-sided intraventricular lipoma. EEG unremarkable. MRI and MRA brain and neck also unremarkable. He was prescribed cough meds for his coughing fits. 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 COPD Pulmonology was consulted. CT chest unremarkable. He was started on antibiotics , steroids and nebs. He received incentive spirometry. He will complete a course of azithromycin and will have PFTs done as an outpt with pulmonology. Neuropathy The pt was started on gabapentin. Atrial fibrillation Heart rate controlled on home meds. He will continue aspirin and will follow up with cardiology. Chronic back and neck pain Cervical spine CT: No acute fx. Grade I anterolisthesis of C3 on C4 and C4 on C5. Cervical MRI: Reversal of the normal cervical lordosis with bony fusion of C5 and C6 and multilevel disc osteophyte complexes resulting in mild bilateral foraminal narrowing from C2 through C6. Acetaminophen and [place] PRN. Added Flexeril with good effect. He will follow up with his PCP. Pt Condition on Discharge: Good Discharge Disposition: Discharge Home Discharge Time: > 30 minutes Discharge Instructions DIET: Follow Instructions for: Heart Healthy Diet Activities you can perform: Regular-No Restrictions Follow up Referrals: Cardiology - 1 Week PCP Follow-up - 1 Week Pulmonology - 2 Weeks with Park Garcia MD New Medications: Azithromycin (Azithromycin) 500 Mg Tab 500 MG PO DAILY Infection #4 Ref 0 TAB Guaifenesin-Codeine Liq (Guaifenesin AC Liq) 100-10 Mg/5 Ml Syrp 10 ML PO Q4H PRN Coughing fits #1 Ref 0 BOTTLE Cyclobenzaprine (Flexeril) 10 Mg Tab 10 MG PO Q8H PRN Muscle spasm #21 TAB Gabapentin (Neurontin) 300 Mg Cap 300 MG PO TID Neuropathy #90 CAP Hydrocodone-Acetaminophen (Hydrocodone-Acetaminophen) 5-325 mg Tab 1 TAB PO Q6HR PRN pain #20 TAB Continued Medications: Aspirin (Aspirin) 81 Mg Tabdr 81 MG PO DAILY TAB Cholecalciferol (Vitamin D) 2,000 Unit Cap 2000 UNITS PO DAILY Diltiazem CD 24 HR (Diltiazem CD 24 HR) 240 Mg Caper 240 MG PO DAILY #30 Ref 0 CAP Metoprolol Tartrate (Metoprolol Tartrate) 25 Mg Tab 25 MG PO BID #60 Ref 0 TAB Multiple Vitamins W/ Minerals (Eye Vitamins) 1 Cap 1 CAP PO DAILY Nutritional Supplement #30 Ref 0 CAP Discontinued Medications: Acetaminophen-Aspirin Buffered (Excedrin Back & Body) 250-250 mg Tab 2 TAB PO Q3HR NEB PRN PAIN SCALE 1 TO 10 TAB Eze Brownlee DO Oct 21, 2016 09:34
[2016-10-21 09:40] LABS: HEMATOCRIT 39.5 % (39.0-51.0); MEAN CELL VOLUME 95.6 FL (80.0-100.0); MEAN CORPUSCULAR HGB CONC 32.5 % (32.0-36.0); PLATELET COUNT 163 TH/MM3 (150-450); RED BLOOD COUNT 4.13 MIL/MM3 (4.50-5.90); RED CELL DISTRIBUTION WIDTH 14.1 % (11.6-17.2); REVIEW FLAG FINAL; WHITE BLOOD COUNT 18.6 TH/MM3 (4.0-11.0)
[2016-10-21 10:07] LABS: BICARBONATE 24.4 MEQ/L (21.0-32.0)
[2016-10-21 10:08] LABS: MAGNESIUM 1.9 MG/DL (1.5-2.5); POTASSIUM 4.5 MEQ/L (3.5-5.1)
[2016-10-21] MEDS: METOPROLOL TARTRATE 25 MG TAB PO SCH (10:56)
[2016-10-21] MEDS: GABAPENTIN 300 MG CAP PO SCH (10:56)
[2016-10-21] MEDS: ASPIRIN EC 81 MG TABEC PO SCH (10:56)
[2016-10-21] MEDS: DILTIAZEM-CD 240 MG CAP ER PO SCH (10:56)
[2016-10-21 11:04] VITALS: PULSE 74
[2016-10-21 11:25] LABS: HEMOGLOBIN A1a 0.6 %; HEMOGLOBIN A1b 2.3 %; HEMOGLOBIN P3 4.9 %
== END 2016-10-21 11:30 | disposition home or self-care (01) ==
LOC: PHED 13:40 → PHEDA 17:51 → PH3A 10-18 01:33 → PHICU 10-18 18:48 → N05B 10-19 21:13
PROVIDERS: ADMIT Hospitalist; ATTEND Hospitalist
DX: R55 Syncope and collapse (principal); J43.9 Emphysema, unspecified; I48.91 Unspecified atrial fibrillation; M54.2 Cervicalgia; G89.29 Other chronic pain; I71.2 Thoracic aortic aneurysm, without rupture; M54.9 Dorsalgia, unspecified; M19.90 Unspecified osteoarthritis, unspecified site; E78.00 Pure hypercholesterolemia, unspecified; G62.9 Polyneuropathy, unspecified; I51.7 Cardiomegaly; I10 Essential (primary) hypertension; F17.200 Nicotine dependence, unspecified, uncomplicated; E66.09 Other obesity due to excess calories; E78.5 Hyperlipidemia, unspecified; I25.10 Atherosclerotic heart disease of native coronary artery without angina pectoris; Z79.82 Long term (current) use of aspirin
CPT/HCPCS: 36600; 70450; 70544; 70548; 70553; 71010; 71250; 71275; 72125; 72141; 72146; 74174; 80048; 80053; 81001; 82550; 82552; 82607; 82805; 82948; 83036; 83735; 83880; 84100; 84443; 84484; 85025; 85027; 85610; 85652; 85730; 87500; 87641; 93005; 93306; 94150; 94640; 94664; 95819; 96361; 96374; 99285; A9579; G0378; J0456; J1815; J2270; J2920; J7030; J7050; Q9967

== ENCOUNTER 2017-08-19 18:21 | Observation (INO) | payer MEDICARE, BC ==
[~2017-08-19] VITALS: Ht 190.5 cm; Wt 130.0 kg
[~2017-08-19 18:21] MED LIST changes: +ASPI1TAB69 PO; -AUGM875 PO; +AZIT500T2 PO; -BACT2OIN TOP; -CARD120T4 PO; +CYCL10TA PO; -DIGO.125 PO; +DILT240C44 PO; -DOXY100T PO; +EYECAP PO; +GUAISYP4 PO; +HYDR-3516 PO; -KLOR20TA6 PO; -LEVA750T9 PO; -METO25 PO; +METO25TA3 PO; +NEUR300C PO; -RANI150 PO; -VIBR50SY PO; +VITA200013 PO
[2017-08-19 18:50] VITALS: BP 133/63; PULSE 76; RESP 16; TEMP 98.6; O2SAT 97
--- NOTE | 2017-08-19 19:19 | PD ---
HPI Chief Complaint: Neuro Symptoms/ Deficits Time Seen by Provider: 18:59 Travel History International Travel<30 days: No Contact w/Intl Traveler<30days: No Traveled to known affect area: No History of Present Illness HPI 72-year-old male with a history of A. fib presents to the emergency department via [facility] with strokelike symptoms that started approximately an hour ago. Patient states that the symptoms started while playing bingo and had about a 10 minute duration before he was "back to normal". Patient states that his symptoms started with difficulty raising his right arm then developed slurred speech and then he felt his lip "pulling down". Patient does not take any blood thinners or aspirin because of his history of gastric ulcers. States that he was taking blood thinners but has not taken any in 5 years. Patient states that he saw his braid folder 3 weeks ago he performed a chest who performed a stress test which was "normal". Patient states he did have an episode of trauma where he tripped on curve and hit the back of his head approximately 1 week ago. Patient denies headache, loss of consciousness. 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 Denies chest pain, shortness of breath , back pain, leg pain. Patient states that she is in [place] for half the year and lives [place] for the other half the year. PFSH Past Medical History Arthritis: Yes Asthma: No Atrial Fibrillation: Yes Autoimmune Disease: No Blood Disorders: No Anxiety: No Depression: No Heart Rhythm Problems: Yes (AFIB) Cancer: No Cardiovascular Problems: Yes (ATRIAL FIBRILATION, thoracic AORTIC ANEURYSM) High Cholesterol: Yes Chest Pain: No Congestive Heart Failure: No COPD: No Cerebrovascular Accident: No Diabetes: No Diminished Hearing: No Endocrine: No Gastrointestinal Disorders: Yes GERD: No Glaucoma: No Genitourinary: No Headaches: Yes Hepatitis: No Hiatal Hernia: No Hypertension: Yes Immune Disorder: No Kidney Stones: No Musculoskeletal: Yes (CHRONIC JOINT PAIN) Neurologic: Yes (neuropathy) Psychiatric: No Reproductive: No Respiratory: Yes Immunizations Current: Yes Migraines: Yes Myocardial Infarction: No Renal Failure: No Seizures: No Sickle Cell Disease: No Sleep Apnea: Yes Thyroid Disease: No Ulcer: Yes Past Surgical History Surgical History: No Previous Surgery Abdominal Surgery: No AICD: No Appendectomy: No Arteriovenous Shunt: No Body Medical Devices: STENTS Cardiac Surgery: Yes (CARDIAC CATH IN PAST ATTEMPTED ABLATION) Cholecystectomy: No Ear Surgery: No Endocrine Surgery: No Eye Surgery: No Genitourinary Surgery: No Gynecologic Surgery: No Insulin Pump: No Joint Replacement: No Oral Surgery: No Pacemaker: No Thoracic Surgery: No Other Surgery: Yes (CA? REMOVED FROM BELOW RIGHT EYE) Social History Alcohol Use: Yes (daily ) Tobacco Use: Yes (1ppd) Substance Use: No Allergies-Medications (Allergen,Severity, Reaction): Coded Allergies: No Known Allergies (Verified , 10/17/16) Reported Meds & Prescriptions Reported Meds & Active Scripts Active Guaifenesin AC Liq (Guaifenesin-Codeine Liq) 100-10 Mg/5 Ml Syrp 10 Ml PO Q4H PRN Azithromycin 500 Mg Tab 500 Mg PO DAILY Hydrocodone-Acetaminophen 5-325 mg Tab 1 Tab PO Q6HR PRN Neurontin (Gabapentin) 300 Mg Cap 300 Mg PO TID Flexeril (Cyclobenzaprine HCl) 10 Mg Tab 10 Mg PO Q8H PRN Reported Vitamin D (Cholecalciferol) 2,000 Unit Cap 2,000 Units PO DAILY Eye Vitamins (Multiple Vitamins W/ Minerals) 1 Cap 1 Cap PO DAILY Diltiazem CD 24 HR 240 Mg Caper 240 Mg PO DAILY Metoprolol Tartrate 25 Mg Tab 25 Mg PO BID Aspirin 81 Mg Tabdr 81 Mg PO DAILY Review of Systems Except as stated in HPI: all other systems reviewed are Neg Physical Exam Narrative GENERAL: Well-developed well-nourished in no apparent distress, resting comfortable in bed SKIN: Focused skin assessment warm/dry. HEAD: Atraumatic. Normocephalic. EYES: Pupils equal and round. No scleral icterus. No injection or drainage. EOMI ENT: No nasal bleeding or discharge. Mucous membranes pink and moist. NECK: Trachea midline. No JVD. No CARDIOVASCULAR: Regular rate and rhythm. No murmur appreciated. RESPIRATORY: No accessory muscle use. Clear to auscultation. Breath sounds equal bilaterally. GASTROINTESTINAL: Abdomen soft, non-tender, nondistended. MUSCULOSKELETAL: No obvious deformities. No clubbing. No cyanosis. No edema. NEUROLOGICAL: Awake and alert. No obvious cranial nerve deficits. Motor grossly within normal limits. Normal speech. No pronator drift PSYCHIATRIC: Appropriate mood and affect; insight and judgment normal. Data Data Last Documented VS Vital Signs Date Time Temp Pulse Resp B/P (MAP) Pulse Ox O2 Delivery O2 Flow Rate FiO2 08/19/17 18:50 98.6 76 16 133/63 (86) 97 Room Air Orders Orders Electrocardiogram (08/19/17 19:08) Prothrombin Time / Inr (Pt) (08/19/17 19:08) Act Partial Throm Time (Ptt) (08/19/17 19:08) Complete Blood Count With Diff (08/19/17 19:08) Comprehensive Metabolic Panel (08/19/17 19:08) Troponin I (08/19/17 19:08) Urinalysis - C+S If Indicated (08/19/17 19:08) Ct Brain W/O Iv Contrast(Rout) (08/19/17 19:08) Chest, Single Ap (08/19/17 19:08) Blood Glucose (08/19/17 19:08) Ct Cerv Spine W/O Contrast (08/19/17 ) Admit Order (Ed Use Only) (08/19/17 21:16) Labs Laboratory Tests Test 08/19/17 19:19 White Blood Count 9.5 TH/MM3 Red Blood Count 4.18 MIL/MM3 Hemoglobin 13.4 GM/DL Hematocrit 39.2 % Mean Corpuscular Volume 93.8 FL Mean Corpuscular Hemoglobin 32.1 PG Mean Corpuscular Hemoglobin Concent 34.2 % Red Cell Distribution Width 14.8 % Platelet Count 165 TH/MM3 Mean Platelet Volume 8.8 FL Neutrophils (%) (Auto) 68.9 % Lymphocytes (%) (Auto) 18.6 % Monocytes (%) (Auto) 8.9 % Eosinophils (%) (Auto) 3.1 % Basophils (%) (Auto) 0.5 % Neutrophils # (Auto) 6.5 TH/MM3 Lymphocytes # (Auto) 1.8 TH/MM3 Monocytes # (Auto) 0.8 TH/MM3 Eosinophils # (Auto) 0.3 TH/MM3 Basophils # (Auto) 0.0 TH/MM3 CBC Comment DIFF FINAL Differential Comment Prothrombin Time 10.6 SEC Prothromb Time International Ratio 1.0 RATIO Activated Partial Thromboplast Time 27.3 SEC Blood Urea Nitrogen 19 MG/DL Creatinine 1.18 MG/DL Random Glucose 108 MG/DL Total Protein 6.8 GM/DL Albumin 3.2 GM/DL Calcium Level 8.9 MG/DL Alkaline Phosphatase 106 U/L Aspartate Amino Transf (AST/SGOT) 12 U/L Alanine Aminotransferase (ALT/SGPT) 12 U/L Total Bilirubin 0.4 MG/DL Sodium Level 138 MEQ/L Potassium Level 3.5 MEQ/L Chloride Level 102 MEQ/L Carbon Dioxide Level 27.5 MEQ/L Anion Gap 9 MEQ/L Estimat Glomerular Filtration Rate 60 ML/MIN Troponin I LESS THAN 0.02 NG/ML MDM Medical Decision Making Medical Screen Exam Complete: Yes Emergency Medical Condition: Yes Differential Diagnosis CVA, TIA, hypoglycemia Narrative Course 72-year-old male with a history of A. fib presents immersed department be a [facility] with strokelike symptoms that started approximately an hour ago. Patient states that the symptoms started while playing bingo and had about a 10 minute duration before he was "back to normal". Patient states that his symptoms started with difficulty raising his right arm then developed slurred speech and then he felt his lip "pulling down". Patient does not take any blood thinners or aspirin because of his history of gastric ulcers. States that he was taking blood thinners but has not taken any in 5 years. Patient states that he saw his braid folder 3 weeks ago he performed a chest who performed a stress test which was "normal". Patient states he did have an episode of trauma where he tripped on curve and hit the back of his head approximately 1 week ago. Patient denies headache, loss of consciousness. 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 Denies chest pain, shortness of breath, back pain, leg pain. Patient states that she is in [place] for half the year and [place] for the other half the year. Vital signs stable. Rate controlled at 70-80BPM. EKG demonstrates A fib with rate controlled. Physical exam findings essentially unremarkable. After discussion of the findings of labs and imaging studies, patient was recommended to stay for observation. Patient was reluctant and did not want to stay however, says that he wound. Patient agreed to stay for observation. Laboratory Tests Test 08/19/17 19:19 White Blood Count 9.5 TH/MM3 Red Blood Count 4.18 MIL/MM3 Hemoglobin 13.4 GM/DL Hematocrit 39.2 % Mean Corpuscular Volume 93.8 FL Mean Corpuscular Hemoglobin 32.1 PG Mean Corpuscular Hemoglobin Concent 34.2 % Red Cell Distribution Width 14.8 % Platelet Count 165 TH/MM3 Mean Platelet Volume 8.8 FL Neutrophils (%) (Auto) 68.9 % Lymphocytes (%) (Auto) 18.6 % Monocytes (%) (Auto) 8.9 % Eosinophils (%) (Auto) 3.1 % Basophils (%) (Auto) 0.5 % Neutrophils # (Auto) 6.5 TH/MM3 Lymphocytes # (Auto) 1.8 TH/MM3 Monocytes # (Auto) 0.8 TH/MM3 Eosinophils # (Auto) 0.3 TH/MM3 Basophils # (Auto) 0.0 TH/MM3 CBC Comment DIFF FINAL Differential Comment Prothrombin Time 10.6 SEC Prothromb Time International Ratio 1.0 RATIO Activated Partial Thromboplast Time 27.3 SEC Blood Urea Nitrogen 19 MG/DL Creatinine 1.18 MG/DL Random Glucose 108 MG/DL Total Protein 6.8 GM/DL Albumin 3.2 GM/DL Calcium Level 8.9 MG/DL Alkaline Phosphatase 106 U/L Aspartate Amino Transf (AST/SGOT) 12 U/L Alanine Aminotransferase (ALT/SGPT) 12 U/L Total Bilirubin 0.4 MG/DL Sodium Level 138 MEQ/L Potassium Level 3.5 MEQ/L Chloride Level 102 MEQ/L Carbon Dioxide Level 27.5 MEQ/L Anion Gap 9 MEQ/L Estimat Glomerular Filtration Rate 60 ML/MIN Troponin I LESS THAN 0.02 NG/ML Patient will be admitted to Obs with Dr. Mckeon. Diagnosis Primary Impression: TIA (transient ischemic attack) Qualified Codes: G45.8 - Other transient cerebral ischemic attacks and related syndromes Admitting Information Admitting Physician Requests: Observation Condition: Stable Fatoumata Jin Aug 19, 2017 19:19
--- NOTE | 2017-08-19 19:41 | RADRPT ---
EXAM DATE/TIME: 08/19/2017 19:31 [facility] COMPARISON: CT BRAIN W/O CONTRAST, October 17, 2016, 16:19. INDICATIONS : Right side weakness. RADIATION DOSE: 39.13 CTDIvol (mGy) MEDICAL HISTORY : Cardiovascular disease. SURGICAL HISTORY : None. ENCOUNTER: Initial ACUITY: 1 day PAIN SCALE: 3/10 LOCATION: cranial TECHNIQUE: Multiple contiguous axial images were obtained of the head. Using automated exposure control and adj ustment of the mA and/or kV according to patient size, radiation dose was kept as low as reasonably a chievable to obtain optimal diagnostic quality images. DICOM format image data is available electro nically for review and comparison. FINDINGS: CEREBRUM: The ventricles are normal for age. No evidence of midline shift, mass lesion, hemorrhage or acute in farction. 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 No extra -axial fluid collections are seen. POSTERIOR FOSSA: The cerebellum and brainstem are intact. The 4th ventricle is midline. The cerebellopontine angle i s unremarkable. EXTRACRANIAL: The visualized portion of the orbits is intact. SKULL: The calvaria is intact. No evidence of skull fracture. CONCLUSION: No acute intracranial abnormality. Peter Avalos MD on August 19, 2017 at 19:37 Board Certified Radiologist. This report was verified electronically.
--- NOTE | 2017-08-19 20:02 | RADRPT ---
EXAM DATE/TIME: 08/19/2017 19:31 [facility] COMPARISON: CT CERVICAL SPINE W/O CONTRAST, October 17, 2016, 16:19. INDICATIONS : Right side weakness. RADIATION DOSE: 19.20 CTDIvol (mGy) MEDICAL HISTORY : Cardiovascular disease. SURGICAL HISTORY : None. ENCOUNTER: Initial ACUITY: 1 day PAIN SCALE: 5/10 LOCATION: neck TECHNIQUE: Volumetric scanning of the cervical spine was performed. Multiplanar reconstructions in the sagittal, coronal and oblique axial planes were performed. Using automated exposure control and adjustment o f the mA and/or kV according to patient size, radiation dose was kept as low as reasonably achievable to obtain optimal diagnostic quality images. DICOM format image data is available electronically f or review and comparison. FINDINGS: There is no acute fracture or prevertebral soft tissue swelling. There is reversal of the normal cerv ical lordosis which is stable. Bilateral foraminal narrowing is again noted and is stable compared to previous examination in September of 2016. Mild spinal stenosis is noted at C5-6. The bony relationship in alignment between C1 and C2 is well maintained. CONCLUSION: 1. No acute fracture or prevertebral soft tissue swelling. 2. Reversal of the normal cervical lordosis. 3. Bilateral foraminal narrowing which is stable compared to previous examination in September of 2016. 4. Mild spinal stenosis at C5-6. Peter Avalos MD on August 19, 2017 at 19:56 Board Certified Radiologist. This report was verified electronically.
[2017-08-19 20:04] LABS: AUTOMATED NEUTROPHIL # 6.5 TH/MM3 (1.8-7.7); BASOPHIL % 0.5 % (0.0-2.0); EOSINOPHIL # 0.3 TH/MM3 (0-0.4); EOSINOPHIL % 3.1 % (0.0-4.0); HEMATOCRIT 39.2 % (39.0-51.0); HEMOGLOBIN 13.4 GM/DL (13.0-17.0); LYMPH % 18.6 % (9.0-44.0); LYMPHOCYTE # 1.8 TH/MM3 (1.0-4.8); MEAN CELL VOLUME 93.8 FL (80.0-100.0); MEAN CORPUSCULAR HEMOGLOBIN 32.1 PG (27.0-34.0); MEAN CORPUSCULAR HGB CONC 34.2 % (32.0-36.0); MEAN PLATELET VOLUME 8.8 FL (7.0-11.0); MONO % 8.9 % (0.0-8.0); MONOCYTE # 0.8 TH/MM3 (0-0.9); NEUT % 68.9 % (16.0-70.0); PLATELET COUNT 165 TH/MM3 (150-450); RED BLOOD COUNT 4.18 MIL/MM3 (4.50-5.90); RED CELL DISTRIBUTION WIDTH 14.8 % (11.6-17.2); WHITE BLOOD COUNT 9.5 TH/MM3 (4.0-11.0)
--- NOTE | 2017-08-19 20:09 | RADRPT ---
EXAM DATE/TIME: 08/19/2017 19:39 [facility] COMPARISON: CHEST SINGLE AP, October 17, 2016, 15:10. INDICATIONS : Short of breath, possible stroke. MEDICAL HISTORY : A-fib. SURGICAL HISTORY : None. ENCOUNTER: Initial ACUITY: 1 day PAIN SCORE: 0/10 LOCATION: Bilateral chest FINDINGS: A single view of the chest demonstrates the lungs to be symmetrically aerated without evidence of mas s, infiltrate or effusion. The cardiomediastinal contours are unremarkable. Osseous structures are intact. CONCLUSION: No acute disease. Peter Avalos MD on August 19, 2017 at 20:06 Board Certified Radiologist. This report was verified electronically.
[2017-08-19 20:14] LABS: PROTHROMBIN TIME - PATIENT 10.6 SEC (9.8-11.6)
[2017-08-19 20:26] LABS: ALBUMIN 3.2 GM/DL (3.4-5.0); AST (GOT) 12 U/L (15-37); BICARBONATE 27.5 MEQ/L (21.0-32.0); BLOOD UREA NITROGEN 19 MG/DL (7-18); CALCIUM 8.9 MG/DL (8.5-10.1); CHLORIDE 102 MEQ/L (98-107); CREATININE 1.18 MG/DL (0.60-1.30); GLOMERULAR FILTRATION RATE 60 ML/MIN (>89); GLUCOSE,RANDOM 108 MG/DL (74-106); SODIUM (NA) 138 MEQ/L (136-145)
[2017-08-19 20:27] LABS: ALT (GPT) 12 U/L (12-78)
[2017-08-19 20:31] LABS: ALKALINE PHOSPHATASE 106 U/L (45-117); TOTAL BILIRUBIN ADULT 0.4 MG/DL (0.2-1.0); TOTAL PROTEIN 6.8 GM/DL (6.4-8.2); TROPONIN I LESS THAN 0.02 NG/ML (0.02-0.05)
[2017-08-19] MEDS: SODIUM CHLOR 0.9% 1000 ML INJ 1,000 ML IV SCH (21:31)
[2017-08-19] MEDS ORDERED: ONDANSETRON HCL 4 MG/2 ML VIAL IVP PRN (21:45)
[2017-08-19] MEDS ORDERED: LACTULOSE SYRUP 20 GM/30 ML CUP PO PRN (21:45)
[2017-08-19] MEDS ORDERED: SODIUM CHLORIDE 0.9% FLUSH 10 ML FLUSH IV FLUSH PRN (21:45)
[2017-08-19] MEDS ORDERED: ACETAMINOPHEN 325 MG TAB PO PRN (21:45)
[2017-08-19] MEDS ORDERED: MAGNESIUM HYDROXIDE SUSP 30 ML CUP PO PRN (21:45)
[2017-08-19] MEDS ORDERED: BISACODYL 10 MG SUPP RECTAL PRN (21:45)
[2017-08-19] MEDS ORDERED: ACETAMINOPHEN/HYDROcodone 325 MG/5 MG TAB PO PRN (21:45)
[2017-08-19] MEDS ORDERED: MORPHINE SULFATE 2 MG/ML INJ IV PUSH PRN (21:45)
[2017-08-19] MEDS ORDERED: SENNOSIDES 8.6 MG TAB PO PRN (21:45)
--- NOTE | 2017-08-19 23:38 | RADRPT ---
EXAM DATE/TIME: 08/19/2017 22:41 [facility] COMPARISON: No previous studies available for comparison. INDICATIONS : Transient ischemic attack. MEDICAL HISTORY : Hypercholesterolemia. Hypertension. Neck pain. Dentures. Syncope. Numbness. Atrial fibrillation. Tu berculosis. Sleep apnea. Dyspnea. Ulcer. Arthritis. Skin cancer. SURGICAL HISTORY : Skin cancer removal. Cardiac catheterization. ENCOUNTER: Initial ACUITY: 1 day PAIN SCORE: 0/10 LOCATION: Bilateral neck PEAK SYSTOLIC VELOCITIES (cm/sec): ICA/CCA RATIO: Right: 1.8 Left: 1.3 ICA: Right: 124.0 Left: 122.0 CCA: Right: 67.5 Left: 92.4 ECA: Right: 45.2 Left: 74.2 VERTEBRAL: Right: 46.0 antegrade Left: 53.7 antegrade Elevated flow velocities and ICA/CCA ratios have been found to correlate with increased degrees of vessel stenosis, calculated as percentage of diameter relative to a normal segment of distal ICA/CCA FINDINGS: RIGHT CAROTID: No significant stenosis is visualized. The waveforms are within normal limits. LEFT CAROTID: No significant stenosis is visualized. The waveforms are within normal limits. VERTEBRAL ARTERIES: Antegrade flow is seen in both vertebral arteries. MISCELLANEOUS: None. CONCLUSION: 1. Mild to moderate visible plaque formation in the carotid arteries bilaterally. No hemodynamically significant stenosis identified. Mark Shah MD on August 19, 2017 at 23:34 Board Certified Radiologist. This report was verified electronically.
--- NOTE | 2017-08-19 23:48 | HHI.HP ---
[facility] Service [facility] Primary Care Physician Jeannette Hartley MD Admission Diagnosis TIA symptoms, h/o A fib Diagnoses: (1) TIA (transient ischemic attack) Diagnosis: Principal (2) A-fib Diagnosis: Principal (3) HTN (hypertension) Diagnosis: Principal (4) Tobacco abuse Diagnosis: Principal Travel History International Travel<30 Days: No Contact w/Intl Traveler <30 Da: No Traveled to Known Affected Are: No History of Present Illness This is a 72-year-old male with a PMH of A. fib, HTN, Hyperlipidemia and Gastric Ulcer who was brought to the ER by EMS secondary to stroke like symptoms. States he was playing Bingo when he had sudden onset of dysarthria and right arm weakness. States symptoms lasted few minutes and resolved spontaneously. Reports similar symptoms approx 1 wk ago, s/p fall w/ head trauma at that time, did not seek medical attention. Denies trauma/injury today. Off ASA for several weeks after EGD showing gastric ulcer. On arrival, BP 133/63, HR 76, O2 sat 97% on RA, Afebrile. See unremarkable. Chemistry essentially unremarkable. Troponin negative. INR 1.1. CXR with no acute findings. CT C-spine no acute fracture. CT Head with no acute finding. Review of Systems Except as stated in HPI: all other systems reviewed are Neg ROS: 14 point review of systems otherwise negative. Past Family Social History Past Medical History PMH: A. fib, HTN, Hyperlipidemia and Gastric Ulcer Past Surgical History PAST SURGICAL HISTORY: Cardiac Stent Allergies: Coded Allergies: No Known Allergies (Verified , 10/17/16) Family History PAST FAMILY HISTORY: Reviewed. No h/o DM or CAD Social History PAST SOCIAL HISTORY: Positive for alcohol. Smokes 1ppd. Negative for drugs. Physical Exam Vital Signs Vital Signs Date Time Temp Pulse Resp B/P (MAP) Pulse Ox O2 Delivery O2 Flow Rate FiO2 08/19/17 18:50 98.6 76 16 133/63 (86) 97 Room Air Physical Exam PE: GENERAL: Pleasant middle-aged white male in no acute distress, sitting up on edge of bed. HEENT: PERRLA, EOMI. No scleral icterus or conjunctival pallor. No lid lag or facial droop. CARDIOVASCULAR: Regular rate and rhythm. No obvious murmurs to auscultation. No chest tenderness to palpation. RESPIRATORY: No obvious rhonchi or wheezing. Clear to auscultation. Breath sounds equal bilaterally. GASTROINTESTINAL: Abdomen soft, non-tender, nondistended. BS normal. MUSCULOSKELETAL: Extremities without clubbing, cyanosis, or edema. No obvious deformities. NEUROLOGICAL: Awake, alert and oriented x4. No focal neurologic deficits. Moving both upper and lower extremities spontaneously. Laboratory Laboratory Tests Test 08/19/17 19:19 White Blood Count 9.5 Red Blood Count 4.18 Hemoglobin 13.4 Hematocrit 39.2 Mean Corpuscular Volume 93.8 Mean Corpuscular Hemoglobin 32.1 Mean Corpuscular Hemoglobin Concent 34.2 Red Cell Distribution Width 14.8 Platelet Count 165 Mean Platelet Volume 8.8 Neutrophils (%) (Auto) 68.9 Lymphocytes (%) (Auto) 18.6 Monocytes (%) (Auto) 8.9 Eosinophils (%) (Auto) 3.1 Basophils (%) (Auto) 0.5 Neutrophils # (Auto) 6.5 Lymphocytes # (Auto) 1.8 Monocytes # (Auto) 0.8 Eosinophils # (Auto) 0.3 Basophils # (Auto) 0.0 CBC Comment DIFF FINAL Differential Comment Prothrombin Time 10.6 Prothromb Time International Ratio 1.0 Activated Partial Thromboplast Time 27.3 Blood Urea Nitrogen 19 Creatinine 1.18 Random Glucose 108 Total Protein 6.8 Albumin 3.2 Calcium Level 8.9 Alkaline Phosphatase 106 Aspartate Amino Transf (AST/SGOT) 12 Alanine Aminotransferase (ALT/SGPT) 12 Total Bilirubin 0.4 Sodium Level 138 Potassium Level 3.5 Chloride Level 102 Carbon Dioxide Level 27.5 Anion Gap 9 Estimat Glomerular Filtration Rate 60 Troponin I LESS THAN 0.02 Result Diagram: 08/19/17191808/19/171918 Caprini VTE Risk Assessment Caprini VTE Risk Assessment: No/Low Risk (score <= 1) Caprini Risk Assessment Model Point Value = 1 Point Value = 2 Point Value = 3 Point Value = 5 Age 41-60 Minor surgery BMI > 25 kg/m2 Swollen legs Varicose veins or History of unexplained or recurrent spontaneous Oral contraceptives or hormone replacement Sepsis (< 1 month) Serious lung disease, including pneumonia (< 1 month) Abnormal pulmonary function Acute myocardial infarction Congestive heart failure (< 1 month) History of inflammatory bowel disease Medical patient at bed rest Age 61-74 Arthroscopic surgery Major open surgery (> 45 min) Laparoscopic surgery (> 45 min) Malignancy Confined to bed (> 72 hours) Immobilizing plaster cast Central venous access Age >= 75 History of VTE Family history of VTE Factor V Leiden Prothrombin [id number] Lupus anticoagulant Anticardiolipin antibodies Elevated serum homocysteine Heparin-induced thrombocytopenia Other congenital or acquired thrombophilia Stroke (< 1 month) Elective arthroplasty Hip, pelvis, or leg fracture Acute spinal cord injury (< 1 month) Prophylaxis Regimen Total Risk Factor Score Risk Level Prophylaxis Regimen 0-1 Low Early ambulation 2 Moderate Order ONE of the following: *Sequential Compression Device (SCD) *Heparin 5000 units SQ BID 3-4 Higher Order ONE of the following medications: *Heparin 5000 units SQ TID *Enoxaparin/Lovenox 40 mg SQ daily (WT < 150 kg, CrCl > 30 mL/min) *Enoxaparin/Lovenox 30 mg SQ daily (WT < 150 kg, CrCl > 10-29 mL/min) *Enoxaparin/Lovenox 30 mg SQ BID (WT < 150 kg, CrCl > 30 mL/min) AND/OR *Sequential Compression Device (SCD) 5 or more Highest Order ONE of the following medications: *Heparin 5000 units SQ TID (Preferred with Epidurals) *Enoxaparin/Lovenox 40 mg SQ daily (WT < 150 kg, CrCl > 30 mL/min) *Enoxaparin/Lovenox 30 mg SQ daily (WT < 150 kg, CrCl > 10-29 mL/min) *Enoxaparin/Lovenox 30 mg SQ BID (WT < 150 kg, CrCl > 30 mL/min) AND *Sequential Compression Device (SCD) Assessment and Plan Problem List: (1) TIA (transient ischemic attack) ICD Code: G45.9 - Transient cerebral ischemic attack, unspecified Status: Acute (2) A-fib ICD Code: I48.91 - Unspecified atrial fibrillation (3) HTN (hypertension) ICD Code: I10 - Essential (primary) hypertension (4) Tobacco abuse ICD Code: Z72.0 - Tobacco use Assessment and Plan A/P: 1. TIA: acute onset of dysarthria/upper extremity weakness, symptoms resolved spontaneously, now back to baseline. CT Head w/ no acute findings, images reviewed by me. Recent fall 1wk ago, CT C-Spine negative. Admit for Observation and further evaluation. Place on telemetry. Check Carotid US to eval for possible occlusion. Start ASA-caution w/ recent dx of gastric ulcer, being followed by GI-cannot recall name. Start Statin. Hold antihypertensives for now. Neuro Consult for further recommendations. 2. A-fib: Paroxysmal, currently in NSR, possible thromboembolic event? Check Echo to eval for valvular abnormality/thrombosis. Telemetry. 3. HTN: Hold antihypertensives for now in light of acute TIA. Monitor BP closely. 4. Tobacco Abuse: Pt counselled. Ativan prn. No NicoDerm to avoid vasoconstriction. 5. DVT Prophylaxis: SCD/teds. 6. Work for DC planning as needed. 7. Discussed at length with ER physician, lab/imaging/records reviewed by me Problem Qualifiers (1) TIA (transient ischemic attack): Qualified Codes: G45.8 - Other transient cerebral ischemic attacks and related syndromes Meagan Mckeon MD Aug 19, 2017 23:48
[2017-08-20] VITALS (7 sets, daily range): BP systolic 152–154; BP diastolic 80–91; PULSE 74–106; RESP 18–20; TEMP 97.2–98.1; O2SAT 95–97
[2017-08-20 02:14] LABS: AUTOMATED NEUTROPHIL # 6.9 TH/MM3 (1.8-7.7); BASOPHIL # 0.1 TH/MM3 (0-0.2); BASOPHIL % 0.7 % (0.0-2.0); EOSINOPHIL # 0.4 TH/MM3 (0-0.4); EOSINOPHIL % 4.1 % (0.0-4.0); HEMATOCRIT 38.4 % (39.0-51.0); HEMOGLOBIN 13.3 GM/DL (13.0-17.0); LYMPH % 21.7 % (9.0-44.0); LYMPHOCYTE # 2.3 TH/MM3 (1.0-4.8); MEAN CELL VOLUME 93.6 FL (80.0-100.0); MEAN CORPUSCULAR HEMOGLOBIN 32.4 PG (27.0-34.0); MEAN CORPUSCULAR HGB CONC 34.6 % (32.0-36.0); MEAN PLATELET VOLUME 8.6 FL (7.0-11.0); MONO % 7.7 % (0.0-8.0); MONOCYTE # 0.8 TH/MM3 (0-0.9); NEUT % 65.8 % (16.0-70.0); PLATELET COUNT 162 TH/MM3 (150-450); RED CELL DISTRIBUTION WIDTH 15.1 % (11.6-17.2); WHITE BLOOD COUNT 10.5 TH/MM3 (4.0-11.0)
[2017-08-20 02:28] LABS: ALBUMIN 3.1 GM/DL (3.4-5.0); AST (GOT) 9 U/L (15-37); BICARBONATE 31.8 MEQ/L (21.0-32.0); BLOOD UREA NITROGEN 18 MG/DL (7-18); CALCIUM 8.6 MG/DL (8.5-10.1); CHLORIDE 103 MEQ/L (98-107); CHOLESTEROL 129 MG/DL (120-200); CREATININE 1.09 MG/DL (0.60-1.30); GLOMERULAR FILTRATION RATE 66 ML/MIN (>89); GLUCOSE,RANDOM 121 MG/DL (74-106); SODIUM (NA) 141 MEQ/L (136-145); TRIGLYCERIDES 47 MG/DL (42-150)
[2017-08-20 02:40] LABS: ALKALINE PHOSPHATASE 101 U/L (45-117); ALT (GPT) 15 U/L (12-78); CHOLESTEROL/ HDL RATIO 2.94 RATIO; HDL CHOLESTEROL 43.8 MG/DL (40.0-60.0); LDL CHOLESTEROL 76 MG/DL (0-99); TOTAL BILIRUBIN ADULT 0.4 MG/DL (0.2-1.0); TOTAL PROTEIN 6.5 GM/DL (6.4-8.2); TROPONIN I LESS THAN 0.02 NG/ML (0.02-0.05)
--- NOTE | 2017-08-20 08:12 | PD.CONS ---
History of Present Illness Service Neurology Consult Requested By medical Reason for Consult tia Primary Care Physician Jeannette Hartley MD History of Present Illness 72-year-old male admitted for tia. hx of afib States he was playing Bingo when he had sudden onset of dysarthria and right arm weakness. lasted one minute. States symptoms lasted few minutes and resolved spontaneously. Reports similar symptoms approx 1 wk ago. was on coumadin and aspirin but stopped 2/2 gastric ulcer over 10 years ago. On arrival, BP 133/63, HR 76. CT Head with no acute finding. carotid u/s no significant stenosis. glucose 108. hx of cough syncope 10/2016 [facility] [place]. mri brain negative. mra brain/carotids nml. currently feels back to his baseline. Review of Systems Except as stated in HPI: all other systems reviewed are Neg/rest per admit hp Past Family Social History Past Medical History PMH: A. fib, HTN, Hyperlipidemia and Gastric Ulcer Past Surgical History PAST SURGICAL HISTORY: Cardiac Stent Allergies: Coded Allergies: No Known Allergies (Verified , 10/17/16) Family History PAST FAMILY HISTORY: Reviewed. No h/o DM or CAD Social History PAST SOCIAL HISTORY: Positive for alcohol. Smokes 1ppd. Negative for drugs. Review of Systems All other ROS: ROS reviewed as documented in chart Past Family Social History Allergies: Coded Allergies: No Known Allergies (Verified , 10/17/16) Active Ordered Medications Current Medications Medications (Trade) Dose Ordered Sig/Nayan Route Start Time Stop Time Status Last Admin Sodium Chloride 1,000 ml @ 100 mls/hr Q10H IV 08/19/17 21:31 (NS Flush) 2 ml UNSCH PRN IV FLUSH 08/19/17 21:45 (NS Flush) 2 ml BID IV FLUSH 08/20/17 09:00 (Zofran Inj) 4 mg Q6H PRN IVP 08/19/17 21:45 (Lovenox Inj) 40 mg Q24H SQ 08/20/17 09:00 (Tylenol) 650 mg Q6H PRN PO 08/19/17 21:45 (Golconda 5-325 Mg) 1 tab Q4H PRN PO 08/19/17 21:45 (Morphine Inj) 2 mg Q3H PRN IV PUSH 08/19/17 21:45 (Risa-Colace) 1 tab BID PO 08/20/17 09:00 (Milk Of Magnesia Liq) 30 ml Q12H PRN PO 08/19/17 21:45 (Senokot) 17.2 mg Q12H PRN PO 08/19/17 21:45 (Dulcolax Supp) 10 mg DAILY PRN RECTAL 08/19/17 21:45 (Lactulose Liq) 30 ml DAILY PRN PO 08/19/17 21:45 (Ecotrin Ec) 81 mg DAILY PO 08/20/17 09:00 (Pravachol) 40 mg DAILY PO 08/20/17 09:00 (Protonix) 40 mg Q12HR PO 08/20/17 09:00 Exam I&O / VS Vital Signs Date Time Temp Pulse Resp B/P (MAP) Pulse Ox O2 Delivery O2 Flow Rate FiO2 08/20/17 00:14 98.1 94 18 153/88 (109) 97 08/19/17 18:50 98.6 76 16 133/63 (86) 97 Room Air General: Alert and Oriented, No acute distress Eye: EOMI Respiratory: Non-labored respirations Cardiology: Normal rate Musculoskeletal: ROM Neurologic: Alert, Oriented, Normal sensory, Normal motor, No focal defects, CN II-XII intact, Normal DTR's Psychiatric: Cooperative, Appropriate mood & affect, Normal judgement Exam Comments obese, alert, ox 3, articulate, fluent, follows, eomi, ou surgical extraction, vff, face sym, no drift, no dysmetria Review/Management Diagnosis/Plan: (1) TIA (transient ischemic attack) ICD Codes: G45.9 - Transient cerebral ischemic attack, unspecified Status: Acute Plan: probable lacunar left mca/corticospinal tract tia etiology: cardioembolic/small vessel [id number]. lipids in good range 10/2016 brain/carotid imaging negative recs OAC. may need gi clearance? ,defer to medical. he does not want coumadin, may consider pradaxa with antidote mri/mra brain tobacco cessation exercise/wt loss (2) A-fib ICD Codes: I48.91 - Unspecified atrial fibrillation Plan: follows with cardiology Dr. Quintanilla (3) HTN (hypertension) ICD Codes: I10 - Essential (primary) hypertension Status: Chronic Plan: goal 120/80 (4) Tobacco abuse ICD Codes: Z72.0 - Tobacco use Status: Chronic Plan: cessation d/w pt Problem Qualifiers (1) TIA (transient ischemic attack): Qualified Codes: G45.8 - Other transient cerebral ischemic attacks and related syndromes (2) A-fib: Qualified Codes: I48.2 - Chronic atrial fibrillation (3) HTN (hypertension): Qualified Codes: I10 - Essential (primary) hypertension Milad Phan MD Aug 20, 2017 08:12
[2017-08-20] MEDS: SODIUM CHLOR 0.9% 1000 ML INJ 1,000 ML IV SCH (08:54)
[2017-08-20] MEDS ORDERED: DOCUSATE SODIUM 50 MG/SENNA 8.6 MG TAB PO SCH (09:00)
[2017-08-20] MEDS ORDERED: PRAVASTATIN SOD 40 MG TAB PO SCH (09:00)
[2017-08-20] MEDS ORDERED: PANTOPRAZOLE SOD 40 MG DELAYED RELEASE TAB PO SCH (09:00)
[2017-08-20] MEDS ORDERED: ASPIRIN EC 81 MG TABEC PO SCH (09:00)
[2017-08-20] MEDS ORDERED: SODIUM CHLORIDE 0.9% FLUSH 10 ML FLUSH IV FLUSH SCH (09:00)
[2017-08-20] MEDS ORDERED: ENOXAPARIN SODIUM 40 MG/0.4 ML SYRINGE SQ SCH (09:00)
[2017-08-20 09:42] LABS: BILIRUBIN, URINE NEG (NEG); BLOOD, URINE NEG (NEG); GLUCOSE,URINE NEG (NEG); KETONE, URINE NEG (NEG); MUCUS URINE FEW /lpf (OCC); NITRITE,URINE NEG (NEG); PH, URINE 5.5 (5.0-8.5); SQUAMOUS EPITHELIAL CELL URINE <1 /hpf (0-5); URINE COLOR YELLOW (YELLW/STRAW); URINE LEUKOCYTE ESTERASE NEG (NEG)
--- NOTE | 2017-08-20 12:31 | RADRPT ---
EXAM DATE/TIME: 08/20/2017 11:31 [facility] COMPARISON: CT BRAIN W/O CONTRAST, August 19, 2017, 19:31. INDICATIONS : Right sided weakness. TIA. MEDICAL HISTORY : Hypertension. A-fib. SURGICAL HISTORY : Cardiac ablation. Cataracts. Skin cancer removed. ENCOUNTER: Subsequent ACUITY: 2 day PAIN SCORE: 0/10 LOCATION: head. TECHNIQUE: Multiplanar, multisequence MRI of the brain was performed without contrast. FINDINGS: CEREBRUM: There is mild generalized atrophy. Ventricles are normal in size. No evidence of midline shift, mass lesion, hemorrhage or acute infarction. No extraaxial fluid collections are seen. The pituitary gl and and suprasellar cistern are normal in configuration. WHITE MATTER: There is mild periventricular white matter signal change. POSTERIOR FOSSA: The cerebellum and brainstem demonstrate no acute finding. Basilar artery is ectatic. The 4th ventri fatmata is midline. The cerebellopontine angle is unremarkable. The cerebellar tonsils are normal in pos ition. DIFFUSION IMAGING: No focal areas of restricted diffusion are seen. No evidence of acute infarction. EXTRACRANIAL: The visualized portions of the orbits and paranasal sinuses are unremarkable. CONCLUSION: 1. No acute intracranial abnormality is identified to explain the clinical symptoms. There are no fin dings to indicate recent ischemia. 2. Chronic changes include generalized atrophy and mild periventricular white matter signal change ch aracteristic of chronic microvascular ischemia. Salvatore Otero MD on August 20, 2017 at 12:24 Board Certified Radiologist. This report was verified electronically.
[2017-08-20] MEDS ORDERED: APIX5TAB PO (13:04)
[2017-08-20] MEDS ORDERED: PANT40TA3 PO (13:04)
--- NOTE | 2017-08-20 13:06 | HHI.PR ---
Subjective Remarks Follow up for Afib, TIA. Patient is currently doing well. No acute concerns. Reports resolution of stroke like symptoms - right arm weakness, dysarthria. No CP, SOB, fever, chills. Objective Vitals Vital Signs Date Time Temp Pulse Resp B/P (MAP) Pulse Ox O2 Delivery O2 Flow Rate FiO2 08/20/17 08:00 97.3 74 20 152/91 (111) 95 08/20/17 04:44 76 08/20/17 01:19 87 08/20/17 00:14 98.1 94 18 153/88 (109) 97 08/19/17 18:50 98.6 76 16 133/63 (86) 97 Room Air I/O 08/19/17 08/19/17 08/19/17 08/20/17 08/20/17 08/20/17 07:00 15:00 23:00 07:00 15:00 23:00 Intake Total 852 ml Balance 852 ml Intake Oral 400 ml IV Total 452 ml # Voids 1 Result Diagram: 08/20/17 0145 08/20/17 0145 Imaging Last Impressions Head Magnetic Resonance Angiography 08/20/17 0000 Signed Impressions: Service Date/Time: Sunday, August 20, 2017 11:31 - CONCLUSION: 1. No large vessel occlusion or significant flow limiting stenosis. Alvarez Munoz MD Head CT [id number]/19/[id number] Signed Impressions: Service Date/Time: Saturday, August 19, 2017 19:31 - CONCLUSION: No acute intracranial abnormality. Peter Avalos MD Chest X-Ray [id number]/19/[id number] Signed Impressions: Service Date/Time: Saturday, August 19, 2017 19:39 - CONCLUSION: No acute disease. Peter Avalos MD Cervical Spine CT 08/19/17 0000 Signed Impressions: Service Date/Time: Saturday, August 19, 2017 19:31 - CONCLUSION: 1. No acute fracture or prevertebral soft tissue swelling. 2. Reversal of the normal cervical lordosis. 3. Bilateral foraminal narrowing which is stable compared to previous examination in September of 2016. 4. Mild spinal stenosis at C5-6. Peter Avalos MD Carotid Artery Ultrasound 08/19/17 0000 Signed Impressions: Service Date/Time: Saturday, August 19, 2017 22:41 - CONCLUSION: 1. Mild to moderate visible plaque formation in the carotid arteries bilaterally. No hemodynamically significant stenosis identified. Mark Shah MD Brain MRI 08/19/17 0000 Signed Impressions: Service Date/Time: Sunday, August 20, 2017 11:31 - CONCLUSION: 1. No acute intracranial abnormality is identified to explain the clinical symptoms. There are no findings to indicate recent ischemia. 2. Chronic changes include generalized atrophy and mild periventricular white matter signal change characteristic of chronic microvascular ischemia. Salvatore Otero MD Objective Remarks GENERAL: AOX3, NAD. SKIN: Warm and dry. HEAD: Normocephalic. EYES: No scleral icterus. No injection or drainage. NECK: Supple, trachea midline. No JVD or lymphadenopathy. CARDIOVASCULAR: Regular rate and rhythm without murmurs, gallops, or rubs. RESPIRATORY: Breath sounds equal bilaterally. No accessory muscle use. GASTROINTESTINAL: Abdomen soft, non-tender, nondistended. MUSCULOSKELETAL: No cyanosis, or edema. BACK: Nontender without obvious deformity. No CVA tenderness. Procedures None. A/P Problem List: (1) TIA (transient ischemic attack) ICD Code: G45.9 - Transient cerebral ischemic attack, unspecified Status: Acute (2) A-fib ICD Code: I48.91 - Unspecified atrial fibrillation (3) HTN (hypertension) ICD Code: I10 - Essential (primary) hypertension Status: Chronic (4) Tobacco abuse ICD Code: Z72.0 - Tobacco use Status: Chronic Assessment and Plan This is a 72-year-old male with a PMH of A. fib, HTN, Hyperlipidemia and Gastric Ulcer who was brought to the ER by EMS secondary to stroke like symptoms. States he was playing Bingo when he had sudden onset of dysarthria and right arm weakness. States symptoms lasted few minutes and resolved spontaneously. Reports similar symptoms approx 1 wk ago. - Transient ischemic attack - Symptoms resolved. - Neurology evaluated patient. Recommended anti-coagulation. - Imaging studies are unremarkable for any acute findings including MRI brain , MRA. - Atrial fibrillation - Hypertension - [id number] score 4 (Age, TIA previously and this one, HTN). - We would recommend one of the newer anti-coagulation meds such as Pradaxa, Apixaban. - Patient would like to discuss with Dr. Quintanilla (Cardiology) first before starting meds. - Will give him rx for Apixaban 5mg BID. Patient is encouraged to discuss with his therapeutic program worker as soon as possible. - Continue Cardizem, Metoprolol for rate control, HTN. Full code. Discharge patient to home Condition on discharge: Improved Heart healthy Diet as tolerated Ad Alexandra activity Rx written: - Apixaban 5mg BID. - Protonix 40mg Qday. Follow-up with primary care physician PRN, Cardiology within 2-3 days. Problem Qualifiers (1) TIA (transient ischemic attack): Qualified Codes: G45.8 - Other transient cerebral ischemic attacks and related syndromes (2) A-fib: Qualified Codes: I48.2 - Chronic atrial fibrillation (3) HTN (hypertension): Qualified Codes: I10 - Essential (primary) hypertension Tanmay Gay DO Aug 20, 2017 13:06
--- NOTE | 2017-08-20 13:25 | RADRPT ---
EXAM DATE/TIME: 08/20/2017 11:31 [facility] COMPARISON: MRA BRAIN W/O CONTRAST, October 20, 2016, 8:33. INDICATIONS : Right sided weakness. TIA. MEDICAL HISTORY : Hypertension. A-fib. SURGICAL HISTORY : Cardiac ablation. Cataracts. Skin cancer removed. ENCOUNTER: Subsequent ACUITY: 2 day PAIN SCORE: 0/10 LOCATION: head. Please note a normal MRA of the brain does not entirely exclude the possibility of a small aneurysm, nor the possibility of distal intracranial vessel disease. TECHNIQUE: 3D time of flight MRA was performed. Source images, multiplanar STS MIP, and 3D volume MIP reconstru ctions were reviewed. FINDINGS: Anterior circulation: Distal intracranial internal carotid arteries are patent with flow extending to the middle and anteri or cerebral arteries. Left A1 segment is again noted to be smaller in caliber consistent with hypopla josh. There is no evidence for aneurysm, vessel truncation or stenosis, and no evidence for vascular m alformation. Posterior circulation: Symmetric distal vertebral arteries with flow extending to basilar artery. There is no evidence for aneurysm, vessel truncation or stenosis, and no evidence for vascular malformation. CONCLUSION: 1. No large vessel occlusion or significant flow limiting stenosis. Alvarez Munoz MD on August 20, 2017 at 13:20 Board Certified Radiologist. This report was verified electronically.
[2017-08-20 15:52] LABS: HEMOGLOBIN A1C 6.7 % (4.3-6.0)
--- NOTE | 2017-08-21 00:50 | EKG ---
Date Performed: 08/19/2017 Time Performed: 18:42:43 PTAGE: 72 years EKG: ATRIAL FIBRILLATION ABNORMAL RHYTHM ECG Since the prior tracing, there has been no signific ant change DOCTOR: Connor Lau Interpretating Date/Time 08/21/2017 00:49:09
== END 2017-08-20 14:54 | disposition home or self-care (01) ==
LOC: NEPC 18:21 → NEDA 21:17 → NEPFCDU 22:42
PROVIDERS: ADMIT Hospitalist; ATTEND Hospitalist
DX: G45.9 Transient cerebral ischemic attack, unspecified (principal); I48.2 Chronic atrial fibrillation; I10 Essential (primary) hypertension; F17.210 Nicotine dependence, cigarettes, uncomplicated; Z87.11 Personal history of peptic ulcer disease; E78.5 Hyperlipidemia, unspecified; Z95.5 Presence of coronary angioplasty implant and graft; M19.90 Unspecified osteoarthritis, unspecified site; I71.2 Thoracic aortic aneurysm, without rupture; G47.30 Sleep apnea, unspecified; Z79.899 Other long term (current) drug therapy; R94.31 Abnormal electrocardiogram [ECG] [EKG]
CPT/HCPCS: 70450; 70544; 70551; 71045; 72125; 80053; 80061; 81001; 83036; 84443; 84484; 85025; 85610; 85730; 93005; 93880; 96360; 97161; 99285; G0378; G8987; G8988; J7030